=== PATIENT | female | born 1955 | race Caucasian/White ===

== ENCOUNTER → 2016-11-22 | Outpatient (CLI) | payer OTHER ==
[~2016-11-22] MED LIST: ACETAMINOPHEN-H1 TA2 PO; ALBUTEROL0.09 MG/A2 INH; AMOXICILLIN500 M2 PO; ASPIRIN ADULT L81 M1 PO; ATARAX,VISTARIL50 MG PO; BACTRIM DS 8001 TA1 PO; CARBIDOPA/LEVOD1 TA1 PO; CLARITIN10 MG PO; CLINDAMYCIN HC300 MG PO; DAYPRO600 M1 PO; EPI-PEN IM; FLONASE ALLERG9.9 ML NAS; FLONASE0.05 MG/AC NS; GABAPENTIN600 MG PO; KEFLEX500 MG PO; KEPPRA500 MG PO; LISINOPRIL2.5 MG PO; LOVASTATIN40 MG PO; MELOXICAM7.5 MG PO; METOPROLOL SR50 MG PO; METOPROLOL SUCC25 M2 PO; METOPROLOL SUCC50 M1 PO; MEVACOR40 MG PO; MIRALAX POWDER17 G1 PO; MOBIC15 MG PO; NAPROXEN500 M1 PO; NOVAPLUS V0.09 MG/Ac INH; OMEPRAZOLE D/R20 MG PO; OMEPRAZOLE40 MG PO; ONDANSETRON H2 MG/ML IV; PERCOCET 325 MG1 TA7 PO; PHENERGAN25 M1 PO; PRILOSEC40 MG PO; PROZAC10 MG PO; Peridex 473 ML473 ML PO; REQUIP1 MG PO; ROBAXIN750 MG PO; SPIRIVA -- 3018 MCG PO; SPIRIVA18 MCG INH; SYMBICORT1 AE1 INH; TOPAMAX50 MG PO; TOPROL XL50 M1 PO; TOPROL-XL50 MG PO; TORADOL10 MG PO; TRAMADOL50 MG PO; VENTOLIN0.09 MG/AC INH; ZANTAC 150150 MG PO; ZITHROMAX Z PA250 MG PO; ZOFRAN ODT4 MG SL; ZOFRAN4 MG PO
== END | disposition home or self-care (01) ==
LOC: CARD 14:57
DX: I25.10 Atherosclerotic heart disease of native coronary artery without angina pectoris (principal); F14.10 Cocaine abuse, uncomplicated; F11.90 Opioid use, unspecified, uncomplicated; R00.0 Tachycardia, unspecified; Z72.0 Tobacco use

== ENCOUNTER 2017-03-11 18:34 | Emergency (ER) | payer OTHER ==
[~2017-03-11] VITALS: Wt 49.9 kg
[2017-03-11 19:09] LABS: BASO # 0.1 10*3/uL (0.0-0.1); BASO % 0.5 % (0.0-1.0); EOS % 0.1 % (1.0-4.0); HEMATOCRIT 46.8 % (37.0-47.0); HEMOGLOBIN 15.6 g/dl (12.0-16.0); IG # 0.1 10*3/uL (0.0-0.1); LYMPH # 1.8 10*3/uL (1.3-4.4); LYMPH % 16.1 % (27.0-41.0); MEAN CELL VOLUME 86.5 fl (81.0-99.0); MEAN CORPUSCULAR HGB 28.8 pg (27.0-31.0); MEAN CORPUSCULAR HGB CONC 33.3 g/dl (33.0-37.0); MEAN PLATELET VOLUME 8.9 fl (9.6-12.3); MONO % 8.6 % (3.0-9.0); NEUT # 8.4 10*3/uL (2.3-7.9); NEUT % 74.3 % (47.0-73.0); PLATELET COUNT AUTOMATED 262 10*3/uL (130-400); RED BLOOD COUNT 5.41 10*6/uL (4.10-5.10); RED CELL DISTRI WIDTH 13.8 % (0-14.5); WHITE BLOOD COUNT 11.3 10*3/uL (4.8-10.8)
[2017-03-11 19:19] LABS: INTERNATIONAL NORM RATIO 1.1 (2.0-3.5); PROTHROMBIN TIME 11.4 SECONDS (9.0-12.4)
[2017-03-11 19:27] LABS: ALBUMIN 3.7 gm/dl (3.1-4.5); BILIRUBIN, TOTAL 0.7 mg/dl (0.2-1.0); MAGNESIUM 1.6 mg/dL (1.5-2.1); POTASSIUM 3.9 mmol/L (3.5-5.1); TOTAL PROTEIN 7.4 gm/dL (6.4-8.2)
[2017-03-11 19:29] LABS: CKMB 1.1 ng/ml (0.5-3.6)
[2017-03-11 19:30] LABS: TROPONIN I 0.025 ng/ml (<0.045)
[2017-03-11 21:10] VITALS: BP 110/64
== END 2017-03-11 20:44 | disposition short-term general hospital (02) ==
LOC: ED 18:34
PROVIDERS: Registered Nurse
DX: G45.9 Transient cerebral ischemic attack, unspecified (principal); R51 Headache; R11.2 Nausea with vomiting, unspecified; M54.2 Cervicalgia; R42 Dizziness and giddiness; F17.200 Nicotine dependence, unspecified, uncomplicated; Z88.0 Allergy status to penicillin; Z88.6 Allergy status to analgesic agent; Z91.030 Bee allergy status; Z88.8 Allergy status to other drugs, medicaments and biological substances; Z79.82 Long term (current) use of aspirin; Z79.899 Other long term (current) drug therapy

== ENCOUNTER → 2017-04-21 | Outpatient (CLI) | payer OTHER ==
[2017-04-21 14:45] LABS: HEMATOCRIT 39.9 % (37.0-47.0); HEMOGLOBIN 12.6 g/dl (12.0-16.0); MEAN CELL VOLUME 91.1 fl (81.0-99.0); MEAN CORPUSCULAR HGB 28.8 pg (27.0-31.0); MEAN CORPUSCULAR HGB CONC 31.6 g/dl (33.0-37.0); MEAN PLATELET VOLUME 9.1 fl (9.6-12.3); RED BLOOD COUNT 4.38 10*6/uL (4.10-5.10); RED CELL DISTRI WIDTH 13.8 % (0-14.5); WHITE BLOOD COUNT 5.8 10*3/uL (4.8-10.8)
[2017-04-21 15:05] LABS: ALBUMIN 3.7 gm/dl (3.1-4.5); BUN 15 mg/dl (7-24); CARBON DIOXIDE 30 mmol/L (21-32); CHLORIDE 103 mmol/L (98-107); EST GLOM FILT AFRICAN AMERICAN > 60 ml/min; GLUCOSE 91 mg/dL (65-99); SGOT/AST 12 IU/L (3-35); SGPT/ALT 15 U/L (12-78); SODIUM 136 mmol/L (136-145)
[2017-04-21 15:08] LABS: ALKALINE PHOSPHATASE 69 U/L (45-117); BILIRUBIN, TOTAL 0.4 mg/dl (0.2-1.0); CHOLESTEROL 181 mg/dL (<200); TOTAL PROTEIN 7.4 gm/dL (6.4-8.2); TRIGLYCERIDES 64 mg/dl (<150); VLDL CHOLESTEROL 13 mg/dL (6-40)
[2017-04-21 15:16] LABS: HDL CHOLESTEROL 83 mg/dl (40-60); LDL CHOLESTEROL 85 mg/dL (9-159)
[2017-04-21 15:17] LABS: HEMOGLOBIN A1c 5.9 % (4.8-5.6)
[2017-04-22 08:10] LABS: RHEUMATOID ARTHRITIS FACTOR <10.0 IU/mL (0.0-13.9)
[2017-04-22 17:06] LABS: LYME AB/TOTAL IMMUNOGLOBULINS <0.91 ISR (0.00-0.90)
== END | disposition home or self-care (01) ==
LOC: LAB 14:19
PROVIDERS: Family Medicine
DX: J98.11 Atelectasis (principal); J44.9 Chronic obstructive pulmonary disease, unspecified; I10 Essential (primary) hypertension; E78.00 Pure hypercholesterolemia, unspecified; E74.9 Disorder of carbohydrate metabolism, unspecified; K21.9 Gastro-esophageal reflux disease without esophagitis; M79.1 Myalgia; M25.50 Pain in unspecified joint; Z87.891 Personal history of nicotine dependence; Z85.118 Personal history of other malignant neoplasm of bronchus and lung; Z90.2 Acquired absence of lung [part of]

== ENCOUNTER → 2017-08-02 | Outpatient (CLI) | payer OTHER ==
[2017-08-02 16:18] LABS: ALBUMIN 3.5 gm/dl (3.1-4.5); ALKALINE PHOSPHATASE 78 U/L (45-117); BUN 11 mg/dl (7-24); CHLORIDE 110 mmol/L (98-107); CHOLESTEROL 185 mg/dL (<200); CPK 84 U/L (26-192); CREATININE 0.96 mg/dL (0.55-1.02); HDL CHOLESTEROL 68 mg/dl (40-60); LDL CHOLESTEROL 96 mg/dL (9-159); POTASSIUM 4.5 mmol/L (3.5-5.1); SGOT/AST 8 IU/L (3-35); SGPT/ALT 21 U/L (12-78); SODIUM 141 mmol/L (136-145); TOTAL PROTEIN 7.3 gm/dL (6.4-8.2); TRIGLYCERIDES 105 mg/dl (<150); VLDL CHOLESTEROL 21 mg/dL (6-40)
== END | disposition home or self-care (01) ==
LOC: LAB 15:47
PROVIDERS: Family Medicine
DX: E78.00 Pure hypercholesterolemia, unspecified (principal)

== ENCOUNTER 2017-09-21 16:30 | Inpatient (IN) | payer OTHER ==
[~2017-09-21] VITALS: Ht 162.5 cm; Wt 48.2 kg
[2017-09-21 16:40] VITALS: BP 137/79
[2017-09-21 17:06] LABS: BASO # 0.1 10*3/uL (0.0-0.1); EOS % 0.5 % (1.0-4.0); HEMATOCRIT 42.4 % (37.0-47.0); HEMOGLOBIN 13.8 g/dl (12.0-16.0); LYMPH # 1.2 10*3/uL (1.3-4.4); LYMPH % 19.9 % (27.0-41.0); MEAN CORPUSCULAR HGB 28.6 pg (27.0-31.0); MEAN CORPUSCULAR HGB CONC 32.5 g/dl (33.0-37.0); MEAN PLATELET VOLUME 8.9 fl (9.6-12.3); MONO # 0.3 10*3/uL (0.1-1.0); MONO % 5.3 % (3.0-9.0); NEUT # 4.4 10*3/uL (2.3-7.9); NEUT % 73.1 % (47.0-73.0); PLATELET COUNT AUTOMATED 296 10*3/uL (130-400); RED BLOOD COUNT 4.82 10*6/uL (4.10-5.10); RED CELL DISTRI WIDTH 12.9 % (0-14.5)
[2017-09-21 17:27] LABS: ALBUMIN 3.5 gm/dl (3.1-4.5); ALKALINE PHOSPHATASE 64 U/L (45-117); BUN 10 mg/dl (7-24); CHLORIDE 106 mmol/L (98-107); SGOT/AST 17 IU/L (3-35); SGPT/ALT 23 U/L (12-78); SODIUM 138 mmol/L (136-145); TOTAL PROTEIN 7.2 gm/dL (6.4-8.2)
[2017-09-21 17:28] LABS: ACETAMINOPHEN (TYLENOL) < 2.0 ug/ml (10-30); ETHYL ALCOHOL < 3.0 mg/dl (<3)
[2017-09-21 17:56] LABS: BILIRUBIN NEGATIVE (NEGATIVE); BLOOD NEGATIVE (NEGATIVE); CLARITY CLEAR (CLEAR); COLOR YELLOW (YELLOW); GLUCOSE NEGATIVE (NEGATIVE); KETONE NEGATIVE (NEGATIVE); LEUKO ESTERASE NEGATIVE (NEGATIVE); NITRITE NEGATIVE (NEGATIVE); SPECIFIC GRAVITY <= 1.005 (1.005-1.030); UROBILINOGEN 0.2 E.U./dl (0.2-1.0)
[2017-09-21 18:05] LABS: BACTERIA TRACE; EPITHELIAL CELLS 20-25
[2017-09-21 18:06] LABS: URINE AMPHETAMINES < 1000 (1000ng/ml); URINE BARBITURATES < 200 (200ng/ml); URINE BENZODIAZEPINES < 200 (200ng/ml); URINE CANNABINOIDS (THC) < 50 (50ng/ml); URINE COCAINE < 300 (300ng/ml); URINE METHADONE < 300 (300ng/ml); URINE OPIATES > 300 (300ng/ml)
[2017-09-21 18:07] LABS: URINE PHENCYCLIDINE < 25 (25ng/ml)
[2017-09-21 18:09] VITALS: BP 138/80
[2017-09-21 18:15] VITALS: BP 123/76
[2017-09-21] MEDS ORDERED: GABAPENTIN600 MG PO (18:28)
[2017-09-21] MEDS ORDERED: INCRUSE ELLI62.5 MCG INH (18:29)
[2017-09-21 20:00] VITALS: BP 123/76
[2017-09-22] VITALS: BP 101/70
[2017-09-22 08:00] VITALS: BP 90/60
[2017-09-22 12:00] VITALS: BP 92/54
[2017-09-22 16:00] VITALS: BP 104/72
[2017-09-22 20:00] VITALS: BP 90/56
[2017-09-23] VITALS: BP 98/55
[2017-09-23 08:00] VITALS: BP 103/67
[2017-09-23 12:00] VITALS: BP 98/57
[2017-09-23 16:00] VITALS: BP 99/58
[2017-09-23 20:00] VITALS: BP 90/56
[2017-09-24] VITALS: BP 101/63
[2017-09-24 08:00] VITALS: BP 102/65
[2017-09-24] MEDS ORDERED: THERA TABLET400 MCG PO (10:22)
[2017-09-24] MEDS ORDERED: ROPINIROLE HYD0.5 MG PO (10:22)
[2017-09-24 12:00] VITALS: BP 110/71
[2017-09-24] MEDS ORDERED: ATARAX,VISTARIL50 MG PO (13:25)
[2017-09-24] MEDS ORDERED: ZOFRAN 4 MG ED2 TAB PO (13:25)
== END 2017-09-24 14:08 | disposition home or self-care (01) | DRG 897 ==
LOC: ED 16:30 → EDHOLD 17:35 → 5E 17:35 → EDHOLD 17:44 → 5E 17:57
PROVIDERS: Nurse Practitioner Family
DX: F11.23 Opioid dependence with withdrawal (principal); R56.9 Unspecified convulsions; G62.9 Polyneuropathy, unspecified; R73.9 Hyperglycemia, unspecified; F12.10 Cannabis abuse, uncomplicated; F14.10 Cocaine abuse, uncomplicated; J44.9 Chronic obstructive pulmonary disease, unspecified; E78.00 Pure hypercholesterolemia, unspecified; I10 Essential (primary) hypertension; R00.0 Tachycardia, unspecified; G43.909 Migraine, unspecified, not intractable, without status migrainosus; F17.200 Nicotine dependence, unspecified, uncomplicated; K21.9 Gastro-esophageal reflux disease without esophagitis; R73.03 Prediabetes; Z88.0 Allergy status to penicillin; Z88.6 Allergy status to analgesic agent; Z88.8 Allergy status to other drugs, medicaments and biological substances; Z71.6 Tobacco abuse counseling; Z91.030 Bee allergy status; Z85.118 Personal history of other malignant neoplasm of bronchus and lung; Z86.73 Personal history of transient ischemic attack (TIA), and cerebral infarction without residual deficits; Z90.710 Acquired absence of both cervix and uterus; Z80.42 Family history of malignant neoplasm of prostate; Z82.49 Family history of ischemic heart disease and other diseases of the circulatory system; Z79.51 Long term (current) use of inhaled steroids; Z79.82 Long term (current) use of aspirin; Z79.899 Other long term (current) drug therapy

== ENCOUNTER → 2018-03-26 | Outpatient (CLI) | payer OTHER ==
[~2018-03-26] MED LIST changes: +BREO ELLIPTA 11 EACH INH; +DICYCLOMINE HCL20 MG PO; +EPIPEN 2-P0.3 MG/0.3 IJ; +INCRUSE ELLI62.5 MCG INH; +MOBIC7.5 MG PO; +Metformin Hydr500 MG PO; +NEURONTIN800 MG PO; +ROPINIROLE HYD0.5 MG PO; +THERA TABLET400 MCG PO; +ZOFRAN 4 MG ED2 TAB PO
[2018-03-26 12:48] LABS: HEMATOCRIT 44.2 % (37.0-47.0); HEMOGLOBIN 13.6 g/dl (12.0-16.0); MEAN CELL VOLUME 92.3 fl (81.0-99.0); MEAN CORPUSCULAR HGB 28.4 pg (27.0-31.0); MEAN CORPUSCULAR HGB CONC 30.8 g/dl (33.0-37.0); MEAN PLATELET VOLUME 9.2 fl (9.6-12.3); RED BLOOD COUNT 4.79 10*6/uL (4.10-5.10); RED CELL DISTRI WIDTH 13.6 % (0-14.5); WHITE BLOOD COUNT 6.2 10*3/uL (4.8-10.8)
[2018-03-26 13:18] LABS: ALBUMIN 3.5 gm/dl (3.1-4.5); ALKALINE PHOSPHATASE 68 U/L (45-117); BUN 15 mg/dl (7-24); CHLORIDE 107 mmol/L (98-107); CHOLESTEROL 165 mg/dL (<200); CPK 41 U/L (26-192); CREATININE 1.04 mg/dL (0.55-1.02); HDL CHOLESTEROL 62 mg/dl (40-60); LDL CHOLESTEROL 84 mg/dL (9-159); POTASSIUM 4.3 mmol/L (3.5-5.1); SGOT/AST 8 IU/L (3-35); SGPT/ALT 12 U/L (12-78); SODIUM 139 mmol/L (136-145); TOTAL PROTEIN 7.2 gm/dL (6.4-8.2); TRIGLYCERIDES 96 mg/dl (<150); VLDL CHOLESTEROL 19 mg/dL (6-40)
== END | disposition home or self-care (01) ==
LOC: LAB 11:36
PROVIDERS: Family Medicine
DX: J44.9 Chronic obstructive pulmonary disease, unspecified (principal); E74.9 Disorder of carbohydrate metabolism, unspecified; E78.00 Pure hypercholesterolemia, unspecified; I10 Essential (primary) hypertension; M19.90 Unspecified osteoarthritis, unspecified site; C34.90 Malignant neoplasm of unspecified part of unspecified bronchus or lung; K21.9 Gastro-esophageal reflux disease without esophagitis; I25.10 Atherosclerotic heart disease of native coronary artery without angina pectoris

== ENCOUNTER → 2018-04-04 | Outpatient (CLI) | payer OTHER ==
[2018-04-04 12:34] LABS: HEMATOCRIT 39.6 % (37.0-47.0); HEMOGLOBIN 12.5 g/dl (12.0-16.0); MEAN CORPUSCULAR HGB 28.4 pg (27.0-31.0); MEAN CORPUSCULAR HGB CONC 31.6 g/dl (33.0-37.0); MEAN PLATELET VOLUME 9.2 fl (9.6-12.3); RED BLOOD COUNT 4.4 10*6/uL (4.10-5.10); RED CELL DISTRI WIDTH 13.7 % (0-14.5); WHITE BLOOD COUNT 5.2 10*3/uL (4.8-10.8)
[2018-04-04 12:47] LABS: ALBUMIN 3.7 gm/dl (3.1-4.5); ALKALINE PHOSPHATASE 64 U/L (45-117); BUN 20 mg/dl (7-24); CHLORIDE 107 mmol/L (98-107); CREATININE 0.92 mg/dL (0.55-1.02); POTASSIUM 4.6 mmol/L (3.5-5.1); SGOT/AST 8 IU/L (3-35); SGPT/ALT 14 U/L (12-78); SODIUM 141 mmol/L (136-145); TOTAL PROTEIN 7.3 gm/dL (6.4-8.2)
== END | disposition home or self-care (01) ==
LOC: LAB 11:46
PROVIDERS: Family Medicine
DX: D45 Polycythemia vera (principal); R73.9 Hyperglycemia, unspecified; E87.1 Hypo-osmolality and hyponatremia; T40.1X1A Poisoning by heroin, accidental (unintentional), initial encounter

== ENCOUNTER 2019-01-10 02:31 | Inpatient (IN) | payer OTHER ==
[~2019-01-10] VITALS: Ht 157.4 cm; Wt 48.8 kg
[2019-01-10] VITALS (9 sets, daily range): BP systolic 120–182; BP diastolic 74–104
--- NOTE | ~2019-01-10 | CON ---
[place], [place] REPORT OF CONSULTATION NAME: GARFIELD YUNG [facility] #: [id number] UNIT #: [id number] ROOM: 506 DOCTOR: DANIEL SANDHU MDMIMI BIRTHDATE: [birth year] DOS: 01/11/2019 PULMONARY CONSULTATION EVALUATION AND MANAGEMENT CONSULTATION REQUESTED BY: Marcelo Hagen MD REASON FOR CONSULTATION: Acute exacerbation of COPD. HISTORY OF PRESENT ILLNESS: This is a 63-year-old white female patient known to me with past history of COPD as well as small cell lung cancer. The patient was noted in remission since 2002. She presented to the hospital for assessment of having increased symptoms of shortness of breath, which was gradually occurring and progressively worsening. The symptom has been noted markedly worsened. The patient does have symptoms of wheezing associated with coughing, chest congestion and a small amount of sputum expectoration at time, but most time was noted nonproductive. The patient has been in the hospital for medical management of ongoing acute exacerbation of chronic obstructive pulmonary disease. REVIEW OF SYSTEMS: CONSTITUTIONAL SYMPTOMS: Fatigue and tiredness noted. Denies symptoms of fever or chills. EYES: Denies burning, redness, or tenderness. EAR, NOSE, THROAT SYMPTOMS: Denies sore throat, hoarseness, otalgia, postnasal drainage or epistaxis. CARDIOVASCULAR: Denies any symptoms of palpitations, edema of the lower extremities or angina pain. GENITOURINARY SYMPTOMS: Denies dysuria, suprapubic pain, or hematuria. GASTROINTESTINAL: The patient was noted with weight loss previously. There was no history of nausea, vomiting, diarrhea, abdominal pain, hematemesis, melena, or hematochezia. SKIN: Denies any abnormal lesions or rashes. CENTRAL NERVOUS SYSTEM: No dizziness, headache, diplopia, syncopal episode Remaining systems were reviewed, they were noted all negative. PAST MEDICAL HISTORY: 1. Chronic obstructive pulmonary disease. 2. Nicotine dependence. 3. Illicit drug use in the form of heroin. 4. Restless legs syndrome. 5. Uncomplicated moderate persistent bronchial asthma. 6. Small cell cancer, status post chemotherapy, radiation and mediastinoscopy in 2002, known in remission. 7. Essential hypertension. 8. Allergic rhinitis. 9. Hypercholesterolemia. 10. Gastroesophageal reflux. PAST SURGICAL HISTORY: [place], [place] REPORT OF CONSULTATION NAME: GARFIELD YUNG UNIT #: [id number] ROOM: 506 DOCTOR: DANIEL SANDHU MD,MIMI BIRTHDATE: [birth year] 1. Mediastinoscopy. 2. Right upper lobectomy in 2012 without any evidence of malignancy. The nodule was noted as benign. SOCIAL HISTORY: The patient is . She has 4 children. Denies any history of alcohol use. The patient does have a history of heroin use. Tobacco use noted since teenager 14 years old, half to a pack of cigarettes per day. FAMILY HISTORY: Father with complication of lung cancer. History about mom was unknown. CURRENT MEDICATIONS: Administered on this hospitalization as loratadine, aspirin, metformin, omeprazole, olanzapine, Remeron, Topamax, metoprolol succinate, Meloxicam Levaquin, DuoNeb, lorazepam, some other p.r.n. medication. DRUG ALLERGY HISTORY: 1. PENICILLIN. 2. MORPHINE. 3. PREDNISONE. PHYSICAL EXAMINATION: GENERAL: This is a 63-year-old female patient who has been currently noted awake and alert without any acute distress. Height of 5 feet 2 inches, weight of 107 pounds, BMI 19.7. VITAL SIGNS: For the patient which were recorded this morning as a normal temperature, respiratory rate 20, heart rate of 120, was noted up to 134 beats per minute with sinus tachycardia, blood pressure at midnight was noted as 174/98 and this morning blood pressure was not available. Pulse oxygen saturation recorded on 2 liters nasal cannula as 97% saturation. HEENT: Examination shows head was atraumatic. Eyes nonicterus. NECK: Supple. CARDIOVASCULAR: S1, S2 is audible. LUNGS: The patient was noted with decreased breath sounds in the lungs bilaterally. There was no wheezing. There were no rales or crackles. Expiratory wheezing present in the lungs bilaterally. ABDOMEN: Soft and nontender. Bowel sounds present. EXTREMITIES: The patient without any acute edema. MUSCULOSKELETAL: Without acute deformities. CENTRAL NERVOUS SYSTEM: Cranial nerves 2-12 intact. LABORATORY DATA: The PT, PTT on 01/10/2019 was noted as normal. CBC of 01/10/2019 WBC count 12.5, remaining CBC was normal. The CMP that was done yesterday. The patient has a normal BUN and creatinine. Potassium 2.9. Other electrolytes are normal. Influenza A and B, nasal washing antigens were negative. Urine drug screen that was done yesterday was noted positive for opiates. CBC that was done on 01/11/2019, WBC count 12.1, hemoglobin and hematocrit normal, platelet count of 469,000. IMPRESSION: 1. The patient who has been currently admitted to the hospital, was noted with [place], [place] REPORT OF CONSULTATION NAME: GARFIELD YUNG UNIT #: [id number] ROOM: [facility] DOCTOR: DANIEL SANDHU MD,MIMI BIRTHDATE: [birth year] acute exacerbation of chronic obstructive pulmonary disease with acute bronchitis. 2. History of illicit drug use in the form of heroin and continuing nicotine dependence. 3. Past history of small cell lung cancer as well with chemotherapy treatment radiation, was not noted any recurrent cancer since then, but the patient continued to have tobacco dependence. 4. Acute exacerbation of bronchial asthma as well. PLAN OF TREATMENT: The patient is receiving bronchodilator, which will be continued. Start the patient on oral antibiotics with acute bronchitis and IV Solu-Medrol. Other therapy, plan of management. Additional treatment changes will be made progression of the illness. Supportive care, other therapies and plan of care. Thank you for allowing me to participate in the care of this patient. MIMI SANCHEZ MD CM:CONSTR:REPORT OF CONSULTATION 1143 01/12/19 0551 interface
--- NOTE | ~2019-01-10 | DS ---
[place], [place] DISCHARGE SUMMARY [id number] UNIT #: [id number] ROOM: 506 DOCTOR: FERNANDA RICHARDSON MD BIRTHDATE: [birth year] DOS: 01/13/2019 DISCHARGE DIAGNOSES: 1. Acute exacerbation of severe underlying chronic obstructive pulmonary disease. 2. Benign essential hypertension. 3. Gastroesophageal reflux disease and esophagitis. 4. Type 2 diabetes mellitus. 5. Generalized seizure disorder. The patient is on Keppra. 6. Type 2 diabetes mellitus. 7. Mixed hyperlipidemia. 8. History of cocaine and heroin abuse. 9. History of lobectomy of the lung. 10. Gastroesophageal reflux disease and esophagitis. 11. POLLEN allergies. 12. Benign essential hypertension. 13. Nicotine smoke dependence. The patient was admitted when she presented to the Emergency Department with increased complaints of shortness of breath, cough, wheezing and chest congestion. She was admitted for acute exacerbation of COPD, treated with corticosteroids, antibiotic, oxygen and her breathing has improved. She still has slight chronic expiratory wheezing and she takes bronchodilators at home. The patient appears to have achieved maximal benefit from this admission. The patient has history of heroin abuse and started undergoing withdrawal symptoms as the patient claimed and was started on Suboxone during her stay at the hospital and she was kept on the lpn. Benign essential hypertension. Blood pressures stayed normal during her stay at the hospital and some tachycardia related to COPD, which has improved. Generalized seizure disorder, treated and asymptomatic with Keppra, which was continued. GERD and esophagitis, treated with omeprazole. Generalized anxiety disorder. The patient is being sent home on a p.r.n. dose of Ativan and she is requesting Zofran for nausea and vomiting. [place], [place] DISCHARGE SUMMARY NAME: GARFIELD YUNG UNIT #: [id number] ROOM: 506 DOCTOR: FERNANDA RICHARDSON MD BIRTHDATE: [birth year] FERNANDA RICHARDSON MD CM:DISCHARG 51 FERNANDA RICHARDSON MD 01/14/19 0019 interface
--- NOTE | ~2019-01-10 | EKG ---
[place], [place] ELECTROCARDIOGRAM REPORT NAME: GARFIELD YUNG UNIT #: [id number] ROOM: 506 DOCTOR: EPIPHANY DRAFT REPORT BIRTHDATE: [birth year] [facility] Test Date: 2019-01-10 Test Time: 08:58:30 Pat Name: GARFIELD YUNG Department: Room: 506 Gender: F Comb Setter: Don Gómez : 1955 Requested By: SAVANA QUESADA Order Number: [id number] Reading MD: Eben Palma MD Measurements Intervals [place] Rate: 128 P: 81 IN: 129 QRS: 61 QRSD: 89 T: 18 QT: 329 QTc: 480 Interpretive Statements Sinus tachycardia Borderline low voltage, extremity leads Nonspecific repol abnormality, diffuse leads Compared to ECG 01/10/2019 05:08:25 Prolonged QT interval no longer present Electronically Signed On 01-14-2019 14:12:14 PDT by Eben Palma MD CM:EKGRPT:ELECTROCARDIOGRAM REPORT [id number] SAVANA QUESADA MD EPIPHANY DRAFT REPORT SAVANA QUESADA MD
--- NOTE | ~2019-01-10 | EKG ---
[place], [place] ELECTROCARDIOGRAM REPORT NAME: GARFIELD YUNG UNIT #: [id number] ROOM: 506 DOCTOR: EPIPHANY DRAFT REPORT BIRTHDATE: [birth year] [facility] Test Date: 2019-01-10 Test Time: 05:08:25 Pat Name: GARFIELD YUNG Department: Room: 506 Gender: F Interactive Project Manager: Ariadne Hernandez : 1955 Requested By: SAVANA QUESADA Order Number: [id number] Reading MD: Umair Kingsley Measurements Intervals [place] Rate: 132 P: 71 [place]: 102 QRS: 60 QRSD: 97 T: -74 QT: 358 QTc: 531 Interpretive Statements Sinus tachycardia Borderline low voltage, extremity leads Nonspecific repol abnormality, diffuse leads Prolonged QT interval Compared to ECG 03/29/2018 10:13:29 Early repolarization now present Prolonged QT interval now present Atrial abnormality no longer present ST (T wave) deviation no longer present Myocardial infarct finding no longer present Electronically Signed On 01-10-2019 5:58:47 PDT by Umair Kingsley CM:EKGRPT:ELECTROCARDIOGRAM REPORT [id number] SAVANA QUESADA MD EPIPHANY DRAFT REPORT SAVANA QUESADA MD
--- NOTE | ~2019-01-10 | PR ---
[place], [place] PROGRESS NOTE NAME: GARFIELD YUNG [facility] #: [id number] UNIT #: [id number] ROOM: 506 DOCTOR: DANIEL SANDHU MD,MIMI BIRTHDATE: [birth year] DOS: 01/12/2019 SUBJECTIVE: The patient was noted comfortable at this time, resting on the bed. She is still complaining of chest congestion and coughing. Denies symptoms of fever or chills. Denies symptoms of hemoptysis. Denies symptoms of nausea, vomiting, diarrhea or any abdominal pain. OBJECTIVE: VITAL SIGNS: For the patient which were recorded showed the temperature noted as normal. Respiratory rate 18, heart rate 103, blood pressure 154/80. Pulse oxygen saturation on 2 liters is 95% saturation. HEENT: Head was atraumatic. Eyes nonicterus. NECK: Supple. CARDIOVASCULAR: S1, S2 audible. LUNGS: Noted expiratory wheezing. There were no crackles. ABDOMEN: Soft, nontender. EXTREMITIES: No acute change. IMPRESSION: 1. The patient with respiratory status, which has been still noted ongoing wheezing with acute exacerbation of chronic obstructive pulmonary disease with acute bronchitis. 3. History of nicotine dependence. PLAN OF TREATMENT: Continue steroids, bronchodilators, oxygen and mucolytics. No change in treatment immediately will be necessary. MIMI SANCHEZ MD CM:PNTRANS [id number] MIMI SANDHU MD 01/13/19 0320 interface
--- NOTE | ~2019-01-10 | CON ---
[place], [place] REPORT OF CONSULTATION NAME: GARFIELD YUNG [facility] #: [id number] UNIT #: [id number] ROOM: 506 DOCTOR: PHD JORDANA JUNEHERINE BIRTHDATE: [birth year] DOS: 01/10/2019 HISTORY OF PRESENT ILLNESS: The patient is a 63-year-old female referred by Dr. Hagen due to heroin withdrawal. At the present time, the patient is on the 5th floor, [facility]. She lives with her boyfriend and daughter. She has 4 children and her oldest son was killed. She denied alcohol use. She smokes a pack of cigarettes per week and uses half to a gram of heroin daily. Her last use was yesterday. She could not state how much she used. She has been using heroin she states for a few years. Her mother and her brother was sick, which triggered her to start using drugs. She is receiving SSI. PAST MEDICAL HISTORY: Heroin abuse, nicotine dependence, type 2 diabetes, COPD, mixed hyperlipidemia, cocaine abuse, history of lobectomy of the lung, gastroesophageal reflux disease and esophagitis, POLLEN allergies, benign essential hypertension. MEDICATIONS: Claritin, aspirin, Glucophage, Prilosec, Topamax, Zofran, Toprol-XL, Mobic, Keppra, Requip, DuoNeb, Subutex, Ativan. PHYSICAL EXAMINATION: The patient was lying in bed and in mild distress due to nausea and withdrawal. She had taken Subutex and Zofran had been requested for the patient. She was awake, alert and oriented to person, place and time. Mood was depressed and anxious and affect was restricted in range. She denied suicidal and homicidal ideation, plan and intent. She followed up with the counseling center in the past as well as various outpatient drug treatment facilities. She is hoping to follow up with drug and individual counseling upon discharge. She is also open to medication management. She endorsed symptoms of hopelessness, helplessness, difficulty sleeping, trouble concentrating. Her appetite has been worse due to withdrawal. Speech and language are within normal limits conversationally. Thought process was goal directed. Thought content was negative for hallucinations or delusions. Insight and judgment appeared fair. DIAGNOSES: Opiate abuse, major depressive disorder, recurrent, moderate. PLAN: I talked with Dr. Timmons about medications to assist with the patient's withdrawal. He suggested Remeron 15 mg at bedtime and Zyprexa 2.5 mg in the morning and 2.5 mg at night. The patient also is open to following up with the counseling center upon discharge and the [facility] program as she has utilized them in the past. [place], [place] REPORT OF CONSULTATION NAME: GARFIELD YUNG UNIT #: [id number] ROOM: 506 DOCTOR: MELONIE, PHD MATTHEW BIRTHDATE: [birth year] Radha June, PhD CM:CONSTR:REPORT OF CONSULTATION 1607 01/10/19 2225 interface
--- NOTE | ~2019-01-10 | PR ---
[place], [place] PROGRESS NOTE [id number] UNIT #: [id number] ROOM: 506 DOCTOR: DANIEL SANDHU MD,MIMI BIRTHDATE: [birth year] DOS: 01/13/2019 PULMONARY PROGRESS NOTE SUBJECTIVE: The patient noted comfortable at this time, resting comfortably in the bed without any distress. She has not been reporting any symptoms of chest pain, fever or chills or hemoptysis. The symptoms of cough and shortness of breath has been decreased in the last 24 hours, but the resolution noted incomplete. OBJECTIVE: VITAL SIGNS: This morning, normal temperature, respiratory rate 20, heart rate 102, blood pressure 122/60. HEENT: Examination shows head was atraumatic. Eyes nonicterus. NECK: Supple. CARDIOVASCULAR: S1, S2 audible. LUNGS: The patient was noted without any crackle, rhonchi, or wheezing. Decreased breath sounds with expiratory wheezing, which was improving. ABDOMEN: Soft, nontender, bowel sounds present. EXTREMITIES: No acute change. IMPRESSION: Resolving acute exacerbation of chronic obstructive pulmonary disease, acute tracheobronchitis, history of chronic nicotine dependence as well as chronic dependence on narcotic medication, and use of the heroine, history of nonsmall cell lung cancer, remained in remission. PLAN OF MANAGEMENT: Ambulation to be continued, encourage as tolerated. Continue bronchodilators and oxygen supplementation. Solu-Medrol at current dose. Possible discharge home in the morning. The patient continue to do well on current medical management with current regimen of prednisone and oral antibiotics. MIMI SANCHEZ MD CM:PNTRANS [id number] MIMI SANDHU MD 01/23/19 0838 interface
--- NOTE | ~2019-01-10 | PR ---
[place], [place] PROGRESS NOTE NAME: GARFIELD YUNG [facility] #: [id number] UNIT #: [id number] ROOM: 506 DOCTOR: FERNANDA RICHARDSON MD BIRTHDATE: [birth year] DOS: 01/10/2019 SUBJECTIVE: The patient is feeling somewhat better today. No complaints of withdrawal after she was started on Suboxone and patient is being seen by Dr. Timmons. OBJECTIVE: GENERAL APPEARANCE: The patient is alert and oriented x 3, in no visible distress. VITAL SIGNS: Blood pressure 137/76, heart rate of 118 beats per minute, breathing 16 times per minute and temperature of 98.4 degrees Fahrenheit. HEENT AND NECK: Exam within normal limits. CARDIOVASCULAR SYSTEM: Heart rate is regular in rate and rhythm. S1 and S2 normally audible. LUNGS: Clear to auscultation. ABDOMEN: Soft, nontender. No obvious organomegaly. Bowel sounds are present. EXTREMITIES: Without significant cyanosis or edema. IMPRESSION: 1. The patient with opioid dependence with opioid-positive drug test, feeling better with Suboxone. 2. The patient is being seen by Psychiatry and started on Zyprexa and mirtazapine. Dr. Timmons to follow. 3. Type 2 diabetes mellitus. The patient is on metformin. Blood sugars have been reasonably controlled. 4. Acute exacerbation of chronic obstructive pulmonary disease, being treated with bronchodilators. Dr. Blevins is following. 5. Gastroesophageal reflux disease and esophagitis, asymptomatic with omeprazole. 6. POLLEN allergies, treated and controlled with loratadine. 7. The patient remains on Keppra, which she has been started in the past for suspicion of generalized seizures. FERNANDA RICHARDSON MD CM:PNTRANS [id number] FERNANDA RICHARDSON MD 01/11/19 1725 interface
--- NOTE | ~2019-01-10 | EKG ---
[place], [place] ELECTROCARDIOGRAM REPORT NAME: GARFIELD YUNG UNIT #: [id number] ROOM: 506 DOCTOR: MADDIE DRAFT REPORT BIRTHDATE: [birth year] [facility] Test Date: 2019-01-10 Test Time: 02:37:50 Pat Name: GARFIELD YUNG Department: Room: 506 Gender: F Security Patrol Officer: : 1955 Requested By: SAVANA QUESADA Order Number: [id number] Reading MD: Umair Kingsley Measurements Intervals [place] Rate: 131 P: 78 DC: 108 QRS: 64 QRSD: 97 T: -89 QT: 345 QTc: 510 Interpretive Statements Sinus tachycardia Atrial premature complexes Anteroseptal infarct, age indeterminate Prolonged QT interval Baseline wander in lead(s) V2 Compared to ECG 03/29/2018 10:13:29 Atrial premature complex(es) now present Prolonged QT interval now present Atrial abnormality no longer present ST (T wave) deviation no longer present Myocardial infarct finding still present Electronically Signed On 01-10-2019 5:58:03 PDT by Umair Kingsley CM:EKGRPT:ELECTROCARDIOGRAM REPORT [id number] SAVANA QUESADA MD EPIPHANY DRAFT REPORT SAVANA QUESADA MD
--- NOTE | ~2019-01-10 | WRIGHTHP ---
[place], [place] PATIENT HISTORY AND PHYSICAL EXAM NAME: GARFIELD YUNG [facility] #: [id number] UNIT #: [id number] ROOM: 506 DOCTOR: FERNANDA RICHARDSON MD BIRTHDATE: [birth year] DOS: 01/10/2019 HISTORY OF PRESENT ILLNESS: The patient is a 63-year-old female with a past medical history of; 1. Substance abuse with heroin. 2. Nicotine smoke dependence. 3. Type 2 diabetes mellitus. 4. Chronic obstructive pulmonary disease. 5. Mixed hyperlipidemia. 6. Cocaine abuse. 7. History of lobectomy of the lung. 8. Gastroesophageal reflux disease and esophagitis. 9. POLLEN allergies. 10. Benign essential hypertension. The patient presented to the Emergency Department with several days' complaint of increasing shortness of breath and wheezing, cough, chest congestion. The patient was diagnosed as having acute exacerbation of COPD and recommended for admission and further management. No complaints of any chest pain. The patient had some episodes of dizziness, but no fainting episode. No other GI or urinary symptoms. REVIEW OF SYSTEMS: RESPIRATORY: Increasing shortness of breath and wheezing. GASTROINTESTINAL: No nausea, vomiting, diarrhea, constipation. CARDIOVASCULAR: No chest pains or palpitations. FAMILY HISTORY: Noncontributory. ALLERGIES: Known allergies to PENICILLIN, BEE STINGS, MORPHINE, and PREDNISONE. PHYSICAL EXAMINATION: GENERAL: Alert, oriented x 3, in no visible distress. VITAL SIGNS: Blood pressure 137/76, heart rate of 128 beats per minute, breathing 32 times per minute, temperature of 98 degrees Fahrenheit. HEENT AND NECK: Extraocular movements are intact. Sclerae are anicteric. Oral mucosa is moist and clean. No obvious facial weakness. Neck is supple without any lymphadenopathy. No thyromegaly. No JVD. No carotid arterial bruits. LUNGS: Decreased breath sounds and expiratory wheezing all over. CARDIOVASCULAR SYSTEM: Heart rate is regular in rate and rhythm. S1 and S2 normally audible. No significant murmur or any other abnormal cardiac sounds. ABDOMEN: Soft, nontender. No obvious organomegaly. Bowel sounds are present. No obvious herniation. EXTREMITIES: Without significant cyanosis or edema. Warm to touch. CENTRAL NERVOUS SYSTEM: Alert and oriented x 3. Cranial nerves II-XII are intact. Speech is normal. The patient is able to move all extremities. Normal muscle strength. Deep tendon reflexes are equal on both sides. Plantars were downgoing. IMPRESSION: [place], [place] PATIENT HISTORY AND PHYSICAL EXAM NAME: GARFIELD YUNG [facility] #: [id number] UNIT #: [id number] ROOM: 506 DOCTOR: FERNANDA RICHARDSON MD BIRTHDATE: [birth year] 1. The patient with acute exacerbation of severe underlying chronic obstructive pulmonary disease, being treated with bronchodilators, oxygen and Dr. Blevins, the dental hygiene professor consulted for help with management. 2. Tachycardia, probably from opiate withdrawal. No drug screen was performed at admission. The patient is being treated with Ativan and will also get a Psychiatry consult for help with management with withdrawals and the patient started on a community midwife. For tachycardia, the patient is being put back on her Toprol and to be monitored closely. 3. Benign essential hypertension to be treated and controlled. 4. Gastroesophageal reflux disease and esophagitis. The patient continued on omeprazole. 5. POLLEN allergies, treated with loratadine, which has been continued. 6. Type 2 diabetes mellitus. The patient continued on metformin and kept on no concentrated sweet diet. 7. The patient was kept on Keppra on suspicion of possible seizures, for which Keppra is being continued. FERNANDA RICHARDSON MD CM:HISPHYS:PATIENT HISTORY AND PHYSICAL EXAMINATION [id number] FERNANDA RICHARDSON MD 01/10/19 1125 interface
--- NOTE | ~2019-01-10 | PR ---
[place], [place] PROGRESS NOTE NAME: GARFIELD YUNG [facility] #: [id number] UNIT #: [id number] ROOM: 506 DOCTOR: FERNANDA RICHARDSON MD BIRTHDATE: [birth year] DOS: SUBJECTIVE: The patient continues to feel better and she is requesting a regular diet noted, not a sugar-free diet. OBJECTIVE: VITAL SIGNS: Blood pressure 154/80, heart rate of 103 beats per minute, breathing 18 times per minute, and temperature 98.2 degrees Fahrenheit. GENERAL APPEARANCE: The patient is alert and oriented x 3, in no visible distress. HEENT AND NECK: Exam within normal limits. CARDIOVASCULAR SYSTEM: Heart rate is regular in rate and rhythm. S1 and S2 normally audible. LUNGS: Clear to auscultation. ABDOMEN: Soft, nontender. No obvious organomegaly. Bowel sounds are present. EXTREMITIES: Without significant cyanosis or edema. IMPRESSION: 1. The patient's heroin abuse and withdrawal symptoms controlled with Suboxone, tachycardia has also improved. 2. Acute exacerbation of severe underlying chronic obstructive pulmonary disease with oxygen dependence, also being followed by Dr. Blevins, continues to improve. The patient on bronchodilators and antibiotics. 3. Benign essential hypertension, treated, and blood pressure being monitored and controlled. 4. Gastroesophageal reflux disease and esophagitis, treated with omeprazole. 5. Type 2 diabetes mellitus. The patient remains on metformin, but requesting a regular diet. 6. The patient without seizures, on Keppra; generalized seizure disorder. FERNANDA RICHARDSON MD CM:PNTRANS [id number] FERNANDA RICHARDSON MD 01/13/19 1303 interface
--- NOTE | ~2019-01-10 | PR ---
[place], [place] PROGRESS NOTE NAME: GARFIELD UYNG [facility] #: [id number] UNIT #: [id number] ROOM: 506 DOCTOR: FERNANDA RICHARDSON MD BIRTHDATE: [birth year] DOS: 01/11/2019 SUBJECTIVE: The patient continues to feel much better after being started on Suboxone. OBJECTIVE: VITAL SIGNS: Blood pressure 110/78, heart rate ranging between 86-120 beats per minute, breathing 20 times per minute, temperature of 98 degrees Fahrenheit. IMPRESSION: 1. The patient with heroin abuse and withdrawal symptoms, now controlled with Suboxone. Tachycardia has resolved. She is feeling much better. 2. Acute exacerbation of severe underlying chronic obstructive pulmonary disease, being followed by Dr. Blevins. The patient treated with bronchodilators, antibiotic. 3. Benign essential hypertension, treated and controlled. Blood pressures have improved. 4. Gastroesophageal reflux disease and esophagitis, asymptomatic with omeprazole. 5. POLLEN allergies, treated with loratadine. 6. Type 2 diabetes mellitus. The patient is on metformin. Blood sugars were reasonable at admission. 7. History of brain lesion and seizures treated with Keppra, asymptomatic. FERNANDA RICHARDSON MD CM:PNTRANS [phone] FERNANDA RICHARDSON MD 01/11/191801 interface
[2019-01-10 02:55] LABS: BASO % 0.3 % (0.0-1.0); EOS % 0.2 % (1.0-4.0); HEMATOCRIT 40.5 % (37.0-47.0); HEMOGLOBIN 13.3 g/dl (12.0-16.0); LYMPH # 0.9 10*3/uL (1.3-4.4); LYMPH % 7.1 % (27.0-41.0); MEAN CELL VOLUME 84.4 fl (81.0-99.0); MEAN CORPUSCULAR HGB 27.7 pg (27.0-31.0); MEAN CORPUSCULAR HGB CONC 32.8 g/dl (33.0-37.0); MEAN PLATELET VOLUME 8.9 fl (9.6-12.3); MONO # 0.8 10*3/uL (0.1-1.0); MONO % 6.2 % (3.0-9.0); NEUT # 10.7 10*3/uL (2.3-7.9); NEUT % 85.7 % (47.0-73.0); PLATELET COUNT AUTOMATED 389 10*3/uL (130-400); RED CELL DISTRI WIDTH 13.7 % (0-14.5); WHITE BLOOD COUNT 12.5 10*3/uL (4.8-10.8)
[2019-01-10 03:05] LABS: ACT PARTIAL THROMBO TIME 29.4 SECONDS (20.0-32.1); INTERNATIONAL NORM RATIO 1.2 (2.0-3.5)
[2019-01-10 03:11] LABS: ALBUMIN 2.6 gm/dl (3.1-4.5); ALKALINE PHOSPHATASE 102 U/L (45-117); BUN 10 mg/dl (7-24); CHLORIDE 99 mmol/L (98-107); CREATININE 0.63 mg/dL (0.55-1.02); POTASSIUM 2.9 mmol/L (3.5-5.1); SGOT/AST 5 IU/L (3-35); SGPT/ALT 9 U/L (12-78); SODIUM 136 mmol/L (136-145); TOTAL PROTEIN 7.5 gm/dL (6.4-8.2)
[2019-01-10 03:13] LABS: TROPONIN I < 0.015 ng/ml (<0.045)
[2019-01-10] MEDS ORDERED: GOOD NEIGHBOR150 MG PO (05:34)
[2019-01-10] MEDS ORDERED: METFORMIN HYDR500 MG PO (05:35)
[2019-01-10] MEDS ORDERED: METOPROLOL SUCC50 M1 PO (05:35)
[2019-01-10] MEDS ORDERED: TOPIRAMATE50 M2 PO (05:36)
[2019-01-10] MEDS ORDERED: GOOD NEIGHBOR L10 MG PO (05:36)
[2019-01-10] MEDS ORDERED: FLUTICASONE PROPIONA (05:36)
[2019-01-10] MEDS ORDERED: MELOXICAM7.5 MG PO (05:37)
--- NOTE | 2019-01-10 07:30 | NUR ---
PT RESTING IN BED WITH EYES CLOSED, AWAKENS EASILY. DROWSY. OXYGEN IN USE. MOIST NONPROD COUGH NOTED. CALL LIGHT IN REACH. SEE SHIFT ASSESSMENT.
--- NOTE | 2019-01-10 09:00 | NUR ---
RESTING IN BED WITH EYES CLOSED. RESP-EASY AND REGULAR AT THIS TIME. OXYGEN IN USE. CALL LIGHT IN REACH.
--- NOTE | 2019-01-10 10:24 | NUR ---
CALLED DR. RICHARDSON REGARDING PT HEARTRATE 120'S-130'S. PT GETS SOB WITH MINIMAL EXERTION. ALSO NOTIFIED PT TRIED TO EAT AND DRINK THIS AM, SHE STARTED COUGHING AND CHOKING. HE WAS MADE AWARE PT NEEDS HOME MEDICATIONS ORDERED. DR. RICHARDSON CAME TO FLOOR TO SEE PT.
--- NOTE | 2019-01-10 11:15 | NUR ---
SPOKE WITH DR. SANCHEZ AWARE OF CONSULT.
--- NOTE | 2019-01-10 11:16 | NUR ---
CALLED DR. VAZQUEZ OFFICE [facility], THEY WILL NOTIFY HIM OF CONSULT.
--- NOTE | 2019-01-10 11:51 | NUR ---
PT MEDICATED WITH ATIVAN PER ORDER, SEE EMAR FOR ANXIETY. ALSO MEDICATED WITH REQUIP FOR RESTLESS LEGS. VISITOR AT HER SIDE. CALL LIGHT IN REACH.
--- NOTE | 2019-01-10 12:00 | NUR ---
BSG-163. CALLED DR. RICHARDSON REGARDING PT WISHING TO GET [facility] INVOLVED AND SHE WANTS SUBUTEX. HE ORDERED SUBUTEX, SEE EMAR.
[2019-01-10 12:06] LABS: URINE AMPHETAMINES < 1000 (1000ng/ml); URINE BARBITURATES < 200 (200ng/ml); URINE BENZODIAZEPINES < 200 (200ng/ml); URINE CANNABINOIDS (THC) < 50 (50ng/ml); URINE COCAINE < 300 (300ng/ml); URINE METHADONE < 300 (300ng/ml); URINE OPIATES > 300 (300ng/ml)
[2019-01-10 12:10] LABS: URINE PHENCYCLIDINE < 25 (25ng/ml)
--- NOTE | 2019-01-10 12:17 | NUR ---
PHARMACY CALLED REGARDING SUBUTEX, HE WILL CALL DR. RICHARDSON.
--- NOTE | 2019-01-10 12:59 | NUR ---
CALLED DR. RICHARDSON MADE AWARE PT REQUESTING ZOFRAN FOR NAUSEA. ORDERS TAKEN AND REVIEWED.
--- NOTE | 2019-01-10 13:00 | NUR ---
PT TOLERATED ROUTINE SUBUTEX PER ORDER, CALL LIGHT IN REACH.
--- NOTE | 2019-01-10 13:45 | NUR ---
PT RESTING IN BED WITH EYES CLOSED. RESP-EASY AND REGULAR AT THIS TIME. OXYGEN IN USE. CALL LIGHT IN REACH.
--- NOTE | 2019-01-10 15:45 | NUR ---
PT MEDICATED WITH ZOFRAN IV PER ORDER FOR C/O NAUSEA. VISITOR AT HER SIDE. CALL LIGHT IN REACH. SEE SHIFT ASSESSMENT.
[2019-01-11] VITALS: BP 174/98
--- NOTE | 2019-01-11 | NUR ---
PT REQUESTED AND RECIEVED PRN ATIVAN AND REQUIP. PT COMPLAINING OF RESTLESS LEGS AND FEELING ANXIOUS. WILL MONITOR FOR EFFECTIVENESS.
--- NOTE | 2019-01-11 01:00 | NUR ---
PT SLEEPING. PREVIOUS PRNS CONSIDERED EFFECTIVE.
[2019-01-11 07:28] LABS: BASO % 0.3 % (0.0-1.0); EOS % 0.2 % (1.0-4.0); HEMATOCRIT 42.3 % (37.0-47.0); HEMOGLOBIN 13.5 g/dl (12.0-16.0); LYMPH # 1.4 10*3/uL (1.3-4.4); LYMPH % 11.2 % (27.0-41.0); MEAN CELL VOLUME 85.8 fl (81.0-99.0); MEAN CORPUSCULAR HGB 27.4 pg (27.0-31.0); MEAN CORPUSCULAR HGB CONC 31.9 g/dl (33.0-37.0); MEAN PLATELET VOLUME 9.1 fl (9.6-12.3); MONO # 0.8 10*3/uL (0.1-1.0); MONO % 6.5 % (3.0-9.0); NEUT # 9.8 10*3/uL (2.3-7.9); NEUT % 80.9 % (47.0-73.0); PLATELET COUNT AUTOMATED 469 10*3/uL (130-400); RED BLOOD COUNT 4.93 10*6/uL (4.10-5.10); WHITE BLOOD COUNT 12.1 10*3/uL (4.8-10.8)
--- NOTE | 2019-01-11 09:00 | NUR ---
Mitigation Supervisor in to talk to patient. Patient states lives at home with her and daughter living in the basement. There are basement steps in the home. Physician: Dr. Antonio Kruger Pharmacy: [facility] Home health services: none Patient's level of ADLs: INDEPENDENT Patient has working utilities: yes DME: O2 @ 2L nc prn, portable O2 tanks, nebulizer, O2 supplier [facility] Follow-up physician's appointment after d/c: she prefers to make her own follow up appt after discharge Does patient want to access PORTAL?: no Discharge plan discussed with patient. She lives at home with her and daughter living in the basement. She is independent in her ADLs and ambulation. Discussed home health care services and she denies any home needs at this time. Her is at the bedside. When medically stable she will be discharged to home. LUIS ARMANDO VASQUEZ
[2019-01-11 12:00] VITALS: BP 110/78
[2019-01-11 16:00] VITALS: BP 91/61
[2019-01-11 20:00] VITALS: BP 93/65
--- NOTE | 2019-01-11 20:00 | NUR ---
AAOX3 SITTING UP IN BED. 02 INTACT A 2LPM VIA NASAL CANNULA; PULSE OX 92%a. LUNGS DIMINISHED BILATERALLY & PATIENT HAS A MOIST COUGH. PT. VOICES NO C/O AT THIS TIME. NO DISTRESS NOTED. CALL LIGHT WITHIN REACH.
[2019-01-12] VITALS: BP 125/81
--- NOTE | 2019-01-12 | NUR ---
RESTING IN BED WITH EYES CLOSED. RESPIRATIONS UNLABORED. CALL LIGHT WITHIN REACH.
--- NOTE | 2019-01-12 06:00 | NUR ---
BLOOD SUGAR 153.
[2019-01-12 06:39] LABS: BASO % 0.1 % (0.0-1.0); HEMATOCRIT 41.1 % (37.0-47.0); HEMOGLOBIN 13.1 g/dl (12.0-16.0); LYMPH # 0.8 10*3/uL (1.3-4.4); LYMPH % 8.1 % (27.0-41.0); MEAN CELL VOLUME 87.6 fl (81.0-99.0); MEAN CORPUSCULAR HGB 27.9 pg (27.0-31.0); MEAN CORPUSCULAR HGB CONC 31.9 g/dl (33.0-37.0); MEAN PLATELET VOLUME 8.8 fl (9.6-12.3); MONO # 0.3 10*3/uL (0.1-1.0); MONO % 2.9 % (3.0-9.0); NEUT # 8.6 10*3/uL (2.3-7.9); NEUT % 88.2 % (47.0-73.0); PLATELET COUNT AUTOMATED 431 10*3/uL (130-400); RED BLOOD COUNT 4.69 10*6/uL (4.10-5.10); RED CELL DISTRI WIDTH 14.1 % (0-14.5); WHITE BLOOD COUNT 9.8 10*3/uL (4.8-10.8)
--- NOTE | 2019-01-12 07:55 | NUR ---
ASSESSMENT COMPLETED. SEE ASSESSMENT INTERVENTION. VOICES NO CONCERNS AT THIS TIME. NO SIGNS OR SYMPTOMS OF DISTRESS. BRAZING MACHINE TENDER INTACT.
[2019-01-12 08:00] VITALS: BP 148/78
--- NOTE | 2019-01-12 09:34 | NUR ---
PATIENT TAKES PO MEDICATIONS AT WITH SIPS OF WATER. NO SIGNS OR SYMPTOMS OF DISTRESS.
[2019-01-12 12:00] VITALS: BP 154/80; BP 167/89
[2019-01-12 16:00] VITALS: BP 100/65
[2019-01-12 18:06] LABS: BUN 24 mg/dl (7-24); CHLORIDE 105 mmol/L (98-107); POTASSIUM 4.6 mmol/L (3.5-5.1); SODIUM 139 mmol/L (136-145)
--- NOTE | 2019-01-12 20:00 | NUR ---
SLEEPING; 02 INTACT. RESPIRATIONS EASY & UNLABORED. CALL LIGHT WITHIN REACH.
--- NOTE | 2019-01-12 21:05 | NUR ---
AROUSES EASILY TO TAKE PO MEDICATIONS. 02 REMAINS INTACT. PT. VOICES NO C/O AT THIS TIME. CALL LIGHT WITHIN REACH.
[2019-01-13] VITALS: BP 121/69
[2019-01-13 06:34] LABS: BASO % 0.1 % (0.0-1.0); HEMATOCRIT 41.1 % (37.0-47.0); HEMOGLOBIN 12.6 g/dl (12.0-16.0); LYMPH # 0.7 10*3/uL (1.3-4.4); LYMPH % 7.8 % (27.0-41.0); MEAN CORPUSCULAR HGB 27.3 pg (27.0-31.0); MEAN CORPUSCULAR HGB CONC 30.7 g/dl (33.0-37.0); MONO # 0.2 10*3/uL (0.1-1.0); MONO % 2.4 % (3.0-9.0); NEUT # 7.9 10*3/uL (2.3-7.9); PLATELET COUNT AUTOMATED 433 10*3/uL (130-400); RED BLOOD COUNT 4.62 10*6/uL (4.10-5.10); RED CELL DISTRI WIDTH 14.3 % (0-14.5); WHITE BLOOD COUNT 8.9 10*3/uL (4.8-10.8)
[2019-01-13 08:00] VITALS: BP 122/60
[2019-01-13 12:00] VITALS: BP 113/73
[2019-01-13 16:00] VITALS: BP 107/52
[2019-01-13] MEDS ORDERED: ATIVAN0.5 MG PO (19:48)
[2019-01-13] MEDS ORDERED: Ondansetron8 MG PO (19:48)
[2019-01-13 20:00] VITALS: BP 109/68
--- NOTE | 2019-01-13 20:30 | NUR ---
PT DISCHARGED HOME AT THIS TIME. DISCHARGE INSTRUCTIONS REVIEWED. [employer] TEAMMATE DISCONTINUED.
== END 2019-01-13 21:10 | disposition home or self-care (01) | DRG 191 ==
LOC: ED 02:31 → EDHOLD 04:25 → 5E 04:25
PROVIDERS: Emergency Medicine Emergency Medical Services; ADMIT Internal Medicine
DX: J44.1 Chronic obstructive pulmonary disease with (acute) exacerbation (principal); F14.23 Cocaine dependence with withdrawal; F11.20 Opioid dependence, uncomplicated; J45.41 Moderate persistent asthma with (acute) exacerbation; F33.1 Major depressive disorder, recurrent, moderate; J44.0 Chronic obstructive pulmonary disease with (acute) lower respiratory infection; F17.210 Nicotine dependence, cigarettes, uncomplicated; I10 Essential (primary) hypertension; K21.0 Gastro-esophageal reflux disease with esophagitis; J20.9 Acute bronchitis, unspecified; E11.9 Type 2 diabetes mellitus without complications; G40.409 Other generalized epilepsy and epileptic syndromes, not intractable, without status epilepticus; E78.00 Pure hypercholesterolemia, unspecified; E78.2 Mixed hyperlipidemia; M19.90 Unspecified osteoarthritis, unspecified site; G25.81 Restless legs syndrome; E87.6 Hypokalemia; Z91.048 Other nonmedicinal substance allergy status; Z88.0 Allergy status to penicillin; Z88.5 Allergy status to narcotic agent; Z88.8 Allergy status to other drugs, medicaments and biological substances; Z91.030 Bee allergy status; Z85.118 Personal history of other malignant neoplasm of bronchus and lung; Z86.73 Personal history of transient ischemic attack (TIA), and cerebral infarction without residual deficits; Z90.49 Acquired absence of other specified parts of digestive tract; Z90.710 Acquired absence of both cervix and uterus; Z80.42 Family history of malignant neoplasm of prostate; Z82.49 Family history of ischemic heart disease and other diseases of the circulatory system; Z82.3 Family history of stroke; Z92.21 Personal history of antineoplastic chemotherapy; Z92.3 Personal history of irradiation; Z80.1 Family history of malignant neoplasm of trachea, bronchus and lung

== ENCOUNTER 2019-04-23 10:28 | Inpatient (IN) | payer OTHER ==
[2019-04-23] VITALS (7 sets, daily range): BP systolic 140–177; BP diastolic 80–98
[~2019-04-23] VITALS: Ht 165.1 cm; Wt 46.7 kg
--- NOTE | ~2019-04-23 | EKG ---
[place], [place] ELECTROCARDIOGRAM REPORT NAME: GARFIELD YUNG UNIT #: [id number] ROOM: [facility] DOCTOR: MADDIE DRAFT REPORT BIRTHDATE: [birth year] [facility] Test Date: 2019-04-23 Test Time: 10:48:34 Pat Name: GARFIELD YUNG Department: Room: [facility] Gender: F Senior Pastor: : [id number] Requested By: JEANETH WOOD Order Number: [id number] Reading MD: Kaiden Klein MD Measurements Intervals [place] Rate: 103 P: 78 OK: 147 QRS: 55 QRSD: 87 T: 72 QT: 403 QTc: 528 Interpretive Statements Sinus tachycardia Consider left atrial enlargement Minimal ST elevation, inferior leads Prolonged QT interval Compared to ECG 01/10/2019 08:58:30 ST (T wave) deviation now present Prolonged QT interval now present Early repolarization no longer present Electronically Signed On 04-25-2019 5:05:44 PDT by Kaiden Klein MD CM:EKGRPT:ELECTROCARDIOGRAM REPORT [id number] JEANETH MENDOZA EPIPHANY DRAFT REPORT JEANETH MENDOZA
--- NOTE | ~2019-04-23 | PROC NOTE ---
[place], [place] PROCEDURE NOTE NAME: GARFIELD YUNG [facility] #: [id number] UNIT #: [id number] ROOM: 515 DOCTOR: TOBIAS MCGOVERN BIRTHDATE: [birth year] DOS: 04/25/2019 MODIFIED BARIUM SWALLOW LOCATION: [facility], room 515, bed 1. ORDERING PHYSICIAN: Minnie Berrios DO RADIOLOGIST: Dr. Aguilera. BACKGROUND INFORMATION: The patient is a 63-year-old female who was seen for a modified barium swallow. This test was ordered due to difficulty swallowing food. The patient was admitted to [facility] for substance abuse. Further medical history includes lung cancer with resection, COPD exacerbation, SIRS, TIA, seizures, cervical cancer and anxiety and depression. The patient was alert and cooperative and reported that foods occasionally stick and she has difficulty swallowing. She stated that this has been occurring over the past couple of months. The patient receives a regular diet and thin liquid. Oral peripheral examination revealed presence of upper and lower denture. The patient reported bottoms as loose and stated that she needs denture adhesive to keep them in. Lingual, labial, and buccal skills were within normal limits in terms of strength, range of motion, and coordination. The patient was able to volitionally cough and swallow. METHODS AND MATERIALS USED FOR THE EXAM: The patient was positioned in the lateral plane and the exam was viewed under fluoroscopy. The patient was presented with a variety of consistencies to assess swallowing skills including applesauce mixed with barium presented in half teaspoon amounts, barium-coated cookie and sandwich given in bite size pieces and thin liquid barium taken independently by cup and straw. ORAL PHASE: Adequate labial seal was displayed around cup, spoon and straw with no anterior loss. Bolus formation was adequate. Oral transit was mildly impaired with solids. Mastication was slow, but functional with solids. Some piecemeal swallow was displayed with barium-coated sandwich. Tongue to palate contact was within normal limits with all consistencies. Tongue retraction was within normal limits. Velar functioning was within normal limits with no nasal regurgitation displayed. PHARYNGEAL PHASE: Unremarkable. ESOPHAGEAL PHASE: This phase of the swallow was not formally assessed during this exam. IMPRESSIONS AND RECOMMENDATIONS: Based upon assessment results, this 63-year-old patient presented with a mild oral dysphagia characterized by slow oral transit and mastication of solids. This was likely due to dryness of the items given. The patient reported that she always feels like her mouth is dry and stated that this sandwich given was dry and hard to swallow. There was no [place], [place] PROCEDURE NOTE NAME: GARFIELD YUNG UNIT #: [id number] ROOM: [facility] DOCTOR: TOBIAS MCGOVERN BIRTHDATE: [birth year] penetration or aspiration occurring with any consistency. No pharyngeal residue was displayed. Recommend the patient remain on present diet with use of safe swallow precautions such as small bites and sips, alternating liquids and solids and taking extra drinks to clear foods as needed. Results and recommendations were shared with the patient and her nurse and they verbalized understanding. No followup treatment is warranted at this time. Thank you very much for this referral. Should you have any questions regarding this patient, please contact the speech pathologist at [phone]. TOBIAS MCGOVERN CM:PROCNOTE:PROCEDURE NOTE [id number] MINNIE MCGOVERN
[~2019-04-23 10:28] MED LIST changes: +ATIVAN0.5 MG PO; +FLUTICASONE PROPIONA; +GOOD NEIGHBOR L10 MG PO; +GOOD NEIGHBOR150 MG PO; +METFORMIN HYDR500 MG PO; +Ondansetron8 MG PO; +TOPIRAMATE50 M2 PO
--- NOTE | 2019-04-23 10:46 | NUR ---
Patient prompted for urine specimen. Unable to urinate at this time. Call light within reach.
[2019-04-23 10:53] LABS: BASO # 0.1 10*3/uL (0.0-0.1); BASO % 0.7 % (0.0-1.0); EOS % 0.4 % (1.0-4.0); HEMATOCRIT 42.5 % (37.0-47.0); HEMOGLOBIN 13.1 g/dl (12.0-16.0); LYMPH % 14.6 % (27.0-41.0); MEAN CELL VOLUME 88.5 fl (81.0-99.0); MEAN CORPUSCULAR HGB 27.3 pg (27.0-31.0); MEAN CORPUSCULAR HGB CONC 30.8 g/dl (33.0-37.0); MEAN PLATELET VOLUME 8.5 fl (9.6-12.3); MONO # 0.4 10*3/uL (0.1-1.0); MONO % 5.1 % (3.0-9.0); NEUT # 5.5 10*3/uL (2.3-7.9); NEUT % 78.9 % (47.0-73.0); PLATELET COUNT AUTOMATED 395 10*3/uL (130-400); RED CELL DISTRI WIDTH 13.7 % (0-14.5); WHITE BLOOD COUNT 6.9 10*3/uL (4.8-10.8)
[2019-04-23 11:08] LABS: ALBUMIN 3.1 gm/dl (3.1-4.5); ALKALINE PHOSPHATASE 86 U/L (45-117); BUN 9 mg/dl (7-24); CHLORIDE 105 mmol/L (98-107); CREATININE 0.66 mg/dL (0.55-1.02); POTASSIUM 4.4 mmol/L (3.5-5.1); SGOT/AST 6 IU/L (3-35); SGPT/ALT 10 U/L (12-78); SODIUM 138 mmol/L (136-145); TOTAL PROTEIN 8.5 gm/dL (6.4-8.2)
[2019-04-23 11:12] LABS: ACETAMINOPHEN (TYLENOL) < 5.0 ug/ml (10-30); ETHYL ALCOHOL < 3.0 mg/dl (<3)
[2019-04-23 12:12] LABS: BILIRUBIN NEGATIVE (NEGATIVE); BLOOD NEGATIVE (NEGATIVE); CLARITY SL CLOUDY (CLEAR); COLOR YELLOW (YELLOW); GLUCOSE NEGATIVE (NEGATIVE); KETONE NEGATIVE (NEGATIVE); LEUKO ESTERASE NEGATIVE (NEGATIVE); NITRITE NEGATIVE (NEGATIVE); PH 7.5 (5.0-9.0); UROBILINOGEN 0.2 E.U./dl (0.2-1.0)
[2019-04-23 12:18] LABS: URINE AMPHETAMINES < 1000 (1000ng/ml); URINE BARBITURATES < 200 (200ng/ml); URINE BENZODIAZEPINES < 200 (200ng/ml); URINE CANNABINOIDS (THC) < 50 (50ng/ml); URINE COCAINE < 300 (300ng/ml); URINE METHADONE < 300 (300ng/ml); URINE OPIATES < 300 (300ng/ml)
--- NOTE | 2019-04-23 12:18 | NUR ---
PATIENT MEETS [facility]. PATIENT WANTS TO FOLLOW UP WITH [facility] FOR [facility]PATIENT TREATMENT. RALEIGH MAHAN B.A.TRANSPORTATION MANAGER
[2019-04-23 12:23] LABS: URINE PHENCYCLIDINE < 25 (25ng/ml)
[2019-04-23 12:32] LABS: WBC 0-2 wbc/hpf (0-5)
--- NOTE | 2019-04-23 13:55 | NUR ---
No nurse able to take report at this time. When inpatient nurse is available they will call ED.
--- NOTE | 2019-04-23 14:05 | NUR ---
ATTEMPTED TO CONTACT ED RN. SHE WAS CURRENTLY UNAVAILABLE FOR REPORT. NOTIFIED STAFF TO BRING PT TO FLOOR TO ROOM 515-2.
--- NOTE | 2019-04-23 14:20 | NUR ---
A 63, admitted to 5E, under the services of JUSTINE Chavez DO with a diagnosis of SUBSTANCE ABUSE. Chief complaint is OPIATE WITHDRAWAL. Patient arrived via wheel chair from ER. Monitor applied. Initial assessment completed. Vital signs taken and recorded. JUSTINE CHAVEZ DO notified of admission to the unit. Orders received. See assessment for past medical history, medications and allergies. Patient and/or family oriented to unit. [facility] visitation policy reviewed. Clothing/patient valuable form completed. ROGER CHRISTIANSON
--- NOTE | 2019-04-23 15:17 | NUR ---
NICODERM 21 MG PATCH AND VISTARIL GIVEN PER NOV FOR ANXIETY.
--- NOTE | 2019-04-23 19:45 | NUR ---
C/O DISCOMFORT PAIN OF LEGS AND MUSCLE CRAMPS, MOTRIN AND REQUIP AND ROBAXIN GIVEN FOR THIS.
--- NOTE | 2019-04-23 19:48 | NUR ---
C/O NAUSEA AND STOMACH CRAMPS. BENTYL AND ZOAN GIVEN FOR THIS SEE MAR.
--- NOTE | 2019-04-23 20:14 | NUR ---
24 HR chart check completed.
--- NOTE | 2019-04-23 21:00 | NUR ---
WITHDRAWAL MED EFFECTIVE FOR PAIN, NAUSEA AND MUSCLE CRAMPS. PT. SLEEPING.
--- NOTE | 2019-04-23 22:31 | NUR ---
ROUTINE SUBUTEX GIVEN ORDERED. TRAZADONE PO FOR SLEEP. WILL MONITOR.
--- NOTE | 2019-04-23 23:45 | NUR ---
TRAZADONE EFFECTIVE. PT. SLEEPING.
[2019-04-24] VITALS (7 sets, daily range): BP systolic 123–155; BP diastolic 75–93
--- NOTE | 2019-04-24 02:00 | NUR ---
PT. RESTING QUIETLY EYES CLOSED. NO ACUTE DISTRESS NOTED.
--- NOTE | 2019-04-24 05:00 | NUR ---
[place] EASILY FOR CHECK AND PO MEDICAION ADMINISTRATION. NO C/O VOICED AT THIS TIME.
--- NOTE | 2019-04-24 15:07 | NUR ---
PATIENT IS GOING TO [facility] FOR INTENSIVE OUTPATIENT TREATMENT. [place] STAFF WILL SET UP APPOINTMENT FOR PATIENT. RALEIGH MAHAN B.A. RESPOOLER
--- NOTE | 2019-04-24 15:10 | NUR ---
PT MEDICATED WITH PRN ZOFRAN AND BENTYL FOR C/O NAUSEA AND ABDOMINAL CRAMPING. UNABLE TO CHART ON EMAR IT BECAME FROZEN AND WILL NOT CONNECT ON WOW. TICKET NUMBER WITH IT [id number].
--- NOTE | 2019-04-24 20:09 | NUR ---
PT.STATED ABOUT 1/2 HOUR AGAIN SHE VOMITED IN TRASH CAN. LARGE AMOUNT OF LIQUID IN TRASH CAN. C/O MUSCLE PAIN AND FEELING ANXIOUS. ROBAXIN, TYLENOL, MOTRIN GIVEN FOR PAIN AND VISTARIL GIVEN FOR ANXIETY.
--- NOTE | 2019-04-24 21:09 | NUR ---
BENTYL AND ZOFRAN GIVEN FOR NAUSEA. SEE MAR.
--- NOTE | 2019-04-24 22:09 | NUR ---
TRAZADONE GIVEN PER ORDER FOR INSOMNIA PER PT. REQUEST.SEE MAR.
--- NOTE | 2019-04-24 22:30 | NUR ---
NOTIFIED DR. PICKENS OF CHEST X-RAY RESULTS, NO ORDERS RECIEVED.
--- NOTE | 2019-04-24 23:30 | NUR ---
TRAZADONE EFFECTIVE PT. SLEEPING.
[2019-04-25] VITALS: BP 121/66
--- NOTE | 2019-04-25 00:08 | NUR ---
24 HR chart check completed.
--- NOTE | 2019-04-25 02:30 | NUR ---
SLEEPING NO ACUTE DISTRESS NOTED.
--- NOTE | 2019-04-25 04:11 | NUR ---
SLEEPING NO ACUTE DISTRESS NOTED.
--- NOTE | 2019-04-25 06:10 | NUR ---
IV started right forearm with #22 angiocath after 1st attempts. The IV site was prepped with Chloraprep. Heparin lock attached. Sterile dressing applied. Patient tolerated precedure well. Procedure performed according to [facility] policy & procedure. RICHARDSON MARSHALL
[2019-04-25 08:00] VITALS: BP 120/71
--- NOTE | 2019-04-25 09:11 | NUR ---
PT REQUESTED "ALL OF MY NEEDED MEDICATIONS", RESTLESS LEG, NAUSEA, ACHE - PT HAS MULTIPLE COMPLAINTS. PRN MEDICATIONS GIVEN, SEE EMAR. WILL MONITOR FOR EFFECTIVENESS
--- NOTE | 2019-04-25 09:12 | NUR ---
PT IN SHOWER
--- NOTE | 2019-04-25 10:15 | NUR ---
PT STATES PRN MEDICTIONS EFFECTIVE, NO NEED STATED AT THIS TIME
--- NOTE | 2019-04-25 11:42 | NUR ---
PEPCID GIVEN, FIRST DOSE. PT HAS TAKEN MEDIATION IN PAST, NO QUESTIONS AT THIS TIME
[2019-04-25 12:00] VITALS: BP 106/69
--- NOTE | 2019-04-25 14:02 | NUR ---
[place] STAFF REVIEWED AFTERCARE PLAN WITH PATIENT. PATIENT IS FOLLOWING UP WITH [facility] FOR OUTPATIENT TREATMENT ON MONDAY, April AT 10:30AM. PATIENT AGREES AND UNDERSTANDS HER AFTERCARE PLAN. RALEIGH MAHAN B.A. FIELD SALES REPRESENTATIVE
--- NOTE | 2019-04-25 14:59 | NUR ---
RETURN FROM BARIUM SWALLOW STUDY
--- NOTE | 2019-04-25 15:01 | NUR ---
SPEECH PATHOLOGY Modified barium swallow completed as per orders due to difficulty swallowing food. Patient was admitted to [facility] for substance abuse. Further medical history includes lung CA with resection, COPD exac., SIRS, TIA, seizures, cervical CA, anxiety/depression. Patient was alert and cooperative and reported foods occasionally sticking and difficulty swallowing over past couple months. She receives a regular diet and thin liquid. Oral exam revealed presence of upper and lower dentures. Lingual/labial and buccal skills were WNL in terms of strength, ROM and coordination. Patient was assessed with puree, solids and thin liquid by cup and straw. Patient displayed mild oral difficulty with slow chewing and transit of sandwich which was likely due to items being dry. Patient reported that she always feels like her mouth is dry and stated that the sandwich given was dry and hard to swallow. There was no penetration/aspiration or residue with any consistency. Recommend patient remain on present diet with use of safe swallow precautions such as small bites and sips, alternating liquid and solid and taking extra drinks to clear foods as needed. Results and maurice. were shared with patient and her nurse and they verbalized understanding. No follow up treatment is warranted at this time. Dictated report to follow. Thank you for this referral. TOBIAS MCGOVERN MSCCC-DIGITAL SERVICE ENGINEER
[2019-04-25 16:00] VITALS: BP 121/76
--- NOTE | 2019-04-25 16:32 | NUR ---
PT COMPLAIN IF HEADACHE, STATES "HEAD IS GOING TO EXPLODE, NEED ALL OF THE NEEDED MEDICATIONS I CAN HAVE".
--- NOTE | 2019-04-25 17:21 | NUR ---
PT CONTINUES TO COMPLAIN OF HEADACHE, MOTRIN GIVEN
[2019-04-25 20:00] VITALS: BP 125/83
[2019-04-26] VITALS: BP 121/73
[2019-04-26 08:00] VITALS: BP 130/66
--- NOTE | 2019-04-26 08:30 | NUR ---
RESTING IN BED. DENIES ANY COMPLAINTS.
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
--- NOTE | 2019-04-26 10:20 | NUR ---
MEDICATED WITH VISTARIL AND REQUIP ORDERED FOR ANXIETY AND RESTLESS LEG
[2019-04-26] MEDS ORDERED: LEVOFLOXACIN500 MG PO (11:24)
[2019-04-26] MEDS ORDERED: ATARAX,VISTARIL50 MG PO (11:24)
[2019-04-26] MEDS ORDERED: PREDNISONE10 MG PO (11:24)
[2019-04-26] MEDS ORDERED: METHOCARBAMOL750 M1 PO (11:24)
[2019-04-26] MEDS ORDERED: ZOFRAN 4 MG ED2 TAB PO (11:45)
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
--- NOTE | 2019-04-26 13:15 | NUR ---
Discharge instructions reviewed with patient/family. Patient receptive and verbalizes understanding. Follow-up care arranged. Written instructions given to patient/family. KENNEDY RAPP
== END 2019-04-26 13:15 | disposition home or self-care (01) | DRG 191 ==
LOC: ED 10:28 → 5E 13:36 → EDHOLD 13:36 → 5E 13:52
PROVIDERS: Physician Assistant; ADMIT Internal Medicine
PROC: BD1BYZZ Fluoroscopy of Mouth/Oropharynx using Other Contrast (ICD-10-PCS; principal; 2019-04-25)
DX: J44.1 Chronic obstructive pulmonary disease with (acute) exacerbation (principal); R65.10 Systemic inflammatory response syndrome (SIRS) of non-infectious origin without acute organ dysfunction; F11.23 Opioid dependence with withdrawal; J90 Pleural effusion, not elsewhere classified; G62.9 Polyneuropathy, unspecified; G43.909 Migraine, unspecified, not intractable, without status migrainosus; I10 Essential (primary) hypertension; F17.210 Nicotine dependence, cigarettes, uncomplicated; M19.90 Unspecified osteoarthritis, unspecified site; K21.9 Gastro-esophageal reflux disease without esophagitis; R13.10 Dysphagia, unspecified; E78.00 Pure hypercholesterolemia, unspecified; R73.9 Hyperglycemia, unspecified; R56.9 Unspecified convulsions; Z71.6 Tobacco abuse counseling; Z88.5 Allergy status to narcotic agent; Z88.8 Allergy status to other drugs, medicaments and biological substances; Z91.030 Bee allergy status; Z90.49 Acquired absence of other specified parts of digestive tract; Z90.710 Acquired absence of both cervix and uterus; Z82.49 Family history of ischemic heart disease and other diseases of the circulatory system; Z80.42 Family history of malignant neoplasm of prostate; Z80.8 Family history of malignant neoplasm of other organs or systems; Z82.3 Family history of stroke; Z86.73 Personal history of transient ischemic attack (TIA), and cerebral infarction without residual deficits; Z85.118 Personal history of other malignant neoplasm of bronchus and lung; Z79.82 Long term (current) use of aspirin; Z79.899 Other long term (current) drug therapy

== ENCOUNTER → 2019-05-23 | Outpatient (CLI) | payer OTHER ==
[~2019-05-23] MED LIST changes: +LEVOFLOXACIN500 MG PO; +METHOCARBAMOL750 M1 PO; +PREDNISONE10 MG PO
[2019-05-23 10:00] LABS: BASO # 0.1 10*3/uL (0.0-0.1); BASO % 0.7 % (0.0-1.0); EOS # 0.1 10*3/uL (0.0-0.4); LYMPH # 0.9 10*3/uL (1.3-4.4); LYMPH % 13.1 % (27.0-41.0); MEAN CELL VOLUME 85.4 fl (81.0-99.0); MEAN CORPUSCULAR HGB 26.6 pg (27.0-31.0); MEAN CORPUSCULAR HGB CONC 31.1 g/dl (33.0-37.0); MEAN PLATELET VOLUME 8.9 fl (9.6-12.3); MONO # 0.5 10*3/uL (0.1-1.0); MONO % 6.7 % (3.0-9.0); NEUT # 5.3 10*3/uL (2.3-7.9); NEUT % 77.1 % (47.0-73.0); PLATELET COUNT AUTOMATED 367 10*3/uL (130-400); RED BLOOD COUNT 5.27 10*6/uL (4.10-5.10); RED CELL DISTRI WIDTH 14.1 % (0-14.5); WHITE BLOOD COUNT 6.9 10*3/uL (4.8-10.8)
[2019-05-23 10:11] LABS: ALBUMIN 3.3 gm/dl (3.1-4.5); ALKALINE PHOSPHATASE 92 U/L (45-117); BUN 11 mg/dl (7-24); CHLORIDE 104 mmol/L (98-107); CHOLESTEROL 192 mg/dL (<200); HDL CHOLESTEROL 72 mg/dl (40-60); LDL CHOLESTEROL 105 mg/dL (9-159); POTASSIUM 4.1 mmol/L (3.5-5.1); SGOT/AST 11 IU/L (3-35); SGPT/ALT 10 U/L (12-78); SODIUM 137 mmol/L (136-145); TRIGLYCERIDES 74 mg/dl (<150); VLDL CHOLESTEROL 15 mg/dL (6-40)
[2019-05-24 13:03] LABS: CREATININE,URINE 45.4 mg/dL (Not Estab.)
== END | disposition home or self-care (01) ==
LOC: LAB 09:18
PROVIDERS: Nurse Practitioner Family
DX: I10 Essential (primary) hypertension (principal); J44.9 Chronic obstructive pulmonary disease, unspecified; E78.2 Mixed hyperlipidemia; J30.9 Allergic rhinitis, unspecified; E11.40 Type 2 diabetes mellitus with diabetic neuropathy, unspecified; G43.809 Other migraine, not intractable, without status migrainosus; R10.13 Epigastric pain; R56.9 Unspecified convulsions

== ENCOUNTER → 2019-07-11 | Outpatient (CLI) | payer OTHER ==
[~2019-07-11] MED LIST changes: +SUBOXONE 8 MG-1 EACH SL
[2019-07-11 09:17] LABS: BUN 14 mg/dl (7-24); CREATININE 0.87 mg/dL (0.55-1.02)
== END | disposition home or self-care (01) ==
LOC: CT 08:40
PROVIDERS: Internal Medicine Critical Care Medicine
DX: J32.0 Chronic maxillary sinusitis (principal); K83.8 Other specified diseases of biliary tract; R91.8 Other nonspecific abnormal finding of lung field; R06.1 Stridor

== ENCOUNTER 2019-07-19 08:04 | Inpatient (IN) | payer OTHER ==
[~2019-07-19] VITALS: Ht 152.4 cm; Wt 52.6 kg
--- NOTE | ~2019-07-19 | DS ---
[place], [place] DISCHARGE SUMMARY NAME: [facility] #: [id number] UNIT #: [id number] ROOM: [facility] DOCTOR: MIMI RAMOS MD BIRTHDATE: [birth year] DOS: 07/20/2019 HOSPITAL COURSE: This is a 63-year-old white female patient underwent fibrobronchoscopy with general anesthesia. The patient has acute pulmonary insufficiency, post-surgery, the patient kept in the Intensive Care Unit. She was successfully liberated from mechanical ventilation after several hours on the mechanical ventilated. There was not any abnormal bleeding noted. The patient did well. Oxygen supplementation gradually titrated off. She was noted on room air of oxygen supplementation baseline. She had been doing well this morning, seen sitting on the side of the bed and ready to be discharged home settings. She has been given her previous home medication, which has been resumed prior to discharge and was started yesterday as well. Hemodynamically, the patient was noted stable without any hemodynamic instability. Low-grade fever noted in the afternoon yesterday at 100.4 most likely related due to the bronchoscopy. The cultures of the bronchial washing noted normal raffy, final culture results were pending. Other labs done on this patient reviewed CBC and CMP yesterday, which were all noted normal. Hypercapnia noted, which were resolved later on. FINAL DISCHARGE DIAGNOSES: 1. 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 2. History of small cell cancer, status post right upper lobectomy, radiation chemotherapy in 2002 which was resolved completely. 3. Chronic obstructive pulmonary disease. 4. General anxiety disorder. 5. Gastroesophageal reflux. 6. History of type 2 diabetes mellitus. 7. Epilepsy. 8. Restless leg syndrome. 9. Allergic rhinitis. 10. General anxiety disorder and depression. 11. Essential hypertension. COMPLICATIONS: None. PLAN: No invasive procedure was done after the bronchoscopy. Resume her previous home medication in the home setting that include use of metoprolol succinate 50 mg daily, loratadine 10 mg daily, aspirin 81 mg daily, metformin 500 mg p.o. b.i.d., omeprazole 40 mg daily, Suboxone 1 p.o. daily, Topamax 50 mg at bedtime, Requip 0.5 mg at bedtime, meloxicam 7.5 mg p.o. b.i.d. p.r.n. for pain, Keppra 500 mg p.o. b.i.d., albuterol sulfate 2.5 nebulizer q.i.d. p.r.n. for shortness of breath, use of Spiriva and Symbicort inhaler as previously used as well. [place], [place] DISCHARGE SUMMARY NAME: AGALUCYJJ Ryan UNIT #: [id number] ROOM: [facility] DOCTOR: MIMI RAMOS MD BIRTHDATE: [birth year] MIMI SANCHEZ MD CM:ROSIE [id number] MIMI SANDHU MD 07/20/19 1433 interface
--- NOTE | ~2019-07-19 | PROC NOTE ---
[place], [place] PROCEDURE NOTE [id number] UNIT #: [id number] ROOM: [facility] DOCTOR: DANIEL SANDHU MD,MIMI BIRTHDATE: [birth year] DOS: 07/19/2019 PREOPERATIVE DIAGNOSES: The patient with a cough as well as an inspiratory stridor with a mass lesion noted in the right hilar area, infiltration possibility of tracheal lumen and the jean pierre area. POSTOPERATIVE DIAGNOSES: The patient with a cough as well as an inspiratory stridor with a mass lesion noted in the right hilar area, infiltration possibility of tracheal lumen and the jean pierre area. PROCEDURE DESCRIPTION: Informed consent obtained for the patient. The patient brought to the OR and placed in the supine position. Conscious sedation was administered initially. The bronchoscope was advanced into the airway into the laryngeal area. Epiglottis and vocal cords were both seen. Vocal cords seemed to be moving symmetrically and not noted with any paralysis. The bronchoscope was advanced to the vocal cord into the tracheal lumen. Lower part trachea noted with a necrotic mass present in the jean pierre level with significant irregularity on the lower portion of the trachea as well. After that, further procedure was done under general anesthesia. The patient was successfully intubated and started under general anesthesia. The bronchoscope was introduced again to the endotracheal tube, lower part of the trachea. Significant infiltration of the right lateral wall of the trachea has somewhat purplish posterior membranous portion with the tumor was also noted with necrotic mass lesion noted at the jean pierre narrowing of both the left and the right main stem bronchi. The infiltration was present extending into the upper portion of the left main stem bronchus and some to the right bronchus intermedius as well. The biopsy was done successfully, several biopsies taken of the necrotic mass and other area, which were noted abnormal under the general anesthesia. A 20 mL of 1:10,000 epinephrine was also lavaged in the area to prevent any bleeding and bleeding was noted essentially less than 1-2 mL. The patient was decided to continue to be intubated for further care and then will be liberated from mechanical ventilator several hours later and the patient will be admitted to the hospital for further care. The samples sent for culture as well as pathology specimen and cytology. MIMI SANCHEZ MD CM:PROCNOTE:PROCEDURE NOTE [id number] MIMI SANDHU MD
--- NOTE | ~2019-07-19 | WRIGHTHP ---
[place], [place] PATIENT HISTORY AND PHYSICAL EXAM NAME: [facility] #: [id number] UNIT #: [id number] ROOM: [facility] DOCTOR: DANIEL SANDHU MD,MIMI BIRTHDATE: [birth year] DOS: 07/19/2019 REASON FOR ADMISSION: Acute pulmonary insufficiency with bronchoscopy. HISTORY OF PRESENT ILLNESS: This is a 63-year-old white female patient who has been currently investigated in the office for the symptoms of inspiratory stridor, shortness of breath and also noted with a mass-like lesion, which was confirmed with recent CT scan of chest as an outpatient. The patient brought to the OR for outpatient procedure. She has been noted with a large infiltrating tumor of the jean pierre and the posterior and lateral wall of the lower trachea and other abnormalities. The biopsy was completed. The patient was continued to be on the mechanical ventilator to prevent any bleeding from post-procedure and biopsy. The patient has been admitted to the Intensive Care Unit for further medical management. REVIEW OF SYSTEMS: Could not be performed since the patient is already noted on the mechanical ventilator, intubated. All the other history contained documented review medical record known to me from her consultation, at this hospital, previously in my office records. PAST MEDICAL HISTORY: 1. Essential hypertension. 2. Neurotic depression. 3. General anxiety disorder. 4. Type 2 diabetes mellitus. 5. Epilepsy. 6. Gastroesophageal reflux. 7. Restless legs syndrome. 8. Allergic rhinitis. 9. Small cell cancer with resection of the lung, right upper lobe chemotherapy and radiation therapy in 2002. 10. Severe chronic obstructive pulmonary disease. 11. A 2 cm mass of the right main stem bronchus and the lateral wall of trachea, possible infiltration as well. The diagnosis was assessed on 07/11/2019, CT scan of the chest. SOCIAL HISTORY: The patient is , has 4 children, lives at home. She has been noted with tobacco use from the age of [age] years old, 1.5 pack of cigarettes per day mostly except short term tobacco abstinence. She does not have any history of alcohol use or any illicit drug use. PAST SURGICAL HISTORY: 1. Laparoscopic cholecystectomy. 2. Partial hysterectomy. 3. Removal of ovarian cyst on the right side. 4. Bronchoscopy, mediastinoscopy in 2002 as well as right upper lung resection. 5. Bronchoscopy that was done today with bronchial biopsy was taken under general anesthesia on 07/19/2019. FAMILY HISTORY: The patient's father at age 70 due to complication of [place], [place] PATIENT HISTORY AND PHYSICAL EXAM NAME: [facility] #: [id number] UNIT #: [id number] ROOM: [facility] DOCTOR: SHIELA RAMOS MDM BIRTHDATE: [birth year] prostate cancer. Mother at 77 due to complications of the lung cancer. HOME MEDICATIONS: Listed as: 1. Generic Advair 232/14 one inhalation b.i.d. 2. Incruse Ellipta 1 inhalation daily. 3. Recent antibiotic completion, Levaquin 500 mg daily. 4. Zepoxin one daily. 5. Requip 0.5 mg at bedtime. 6. Omeprazole 40 mg daily. 7. Loratadine 10 mg daily. 8. Flonase one inhalation b.i.d. 9. Metoprolol succinate 50 mg p.o. daily. 10. Aspirin 81 mg daily. 11. Metformin 500 mg p.o. b.i.d. 12. Lovastatin 40 mg daily. 13. Topamax 40 mg daily. 14. Meloxicam 15 mg p.r.n. for pain. 15. Albuterol sulfate with 2 inhalations q.i.d. p.r.n. for shortness of breath. 16. Famotidine 20 mg daily. 17. Vitamin D 125 mg daily. 18. Keppra 500 mg p.o. b.i.d. DRUG ALLERGY HISTORY: Noted as allergies: 1. PENICILLIN. 2. MORPHINE. PHYSICAL EXAMINATION: GENERAL: A 63-year-old female who is currently intubated. Height of 5 feet, weight of 116 pounds. The patient's BMI 22.6. VITAL SIGNS: Recorded normal temperature, respiratory rate of 16, heart rate of 103, blood pressure 116/73. Pulse ox saturation recorded 100% saturation. HEENT: Shows head was atraumatic. Eyes nonicterus. NECK: Supple. CARDIOVASCULAR: S1, S2 is audible. LUNGS: The patient was noted without any wheeze or crackles. Breaths are noted mildly decreased bilaterally. ABDOMEN: Soft, nontender. Bowel sounds present. EXTREMITIES: The patient was noted without any acute edema, clubbing, or cyanosis. MUSCULOSKELETAL: Without acute deformities. CENTRAL NERVOUS SYSTEM: The patient was noted intact prior to the surgery. Currently, the patient is sedated. LABORATORY DATA: Arterial blood gas that was done after admission, pH of 7.21, pCO2 of 62, pO2 134 with 40% oxygen on the mechanical ventilator with assist control, volume control. CBC: WBC count 8.5, hemoglobin 12.3, platelet count was noted as normal. CMP that was done this morning was noted essentially normal CMP as well. Chest x-ray post-surgery noted endotracheal tube appropriately positioned. Both lungs were noted expanded. Volume loss on the right side, was noted with surgical changes. Prominent right hilar area. [place], [place] PATIENT HISTORY AND PHYSICAL EXAM NAME: [facility] #: [id number] UNIT #: [id number] ROOM: [facility] DOCTOR: MIMI RAMOS MD BIRTHDATE: [birth year] IMPRESSION: 1. The patient who has been currently noted with infiltrating tumor of the jean pierre as the part of the trachea with recurrence of lung cancer where the non-small cell to be assessed. 2. Acute pulmonary insufficiency, post-surgery as well. 3. Hypercapnia secondary to chronic hypercapnic respiratory failure. 4. Chronic nicotine dependence. 5. History of small cell cancer past surgery, chemotherapy and radiation therapy in 2002. Multiple other medical problems noted in the past history. PLAN OF TREATMENT: She will be ordered the bronchodilators. She was started on CPAP motor mechanical ventilation, CPAP 5, pressure of 10 after 12 hours on mechanical ventilator with the intention of liberation from mechanical ventilator. Do not do any suction for any bleeding at the site of the recent biopsy. The postoperative findings as well as the admission process have been discussed with 2 other sisters in the recovery room. The patient would be continued on the Diprivan with the patient remains on mechanical ventilator, more than 24 hours. Additional treatment changes will be ordered including ventilator bundle management and assessment. Melo catheter will be placed temporary to prevent the urinary retention for short term. Other medical management to be done based on progression of the illness. Supportive care. Usual medical management. Assess any abnormal bleeding endotracheal tube prior to liberation from mechanical ventilation. DVT prophylaxis will be added later on to the treatment for this patient. If the patient remains nonambulatory in the next 24 hours. Other supportive therapy, plan of management, care plan treatment and management. Prognosis is guarded. The diet will be started oral, if the patient got liberated from mechanical ventilator later this afternoon. MIMI SANCHEZ MD CM:HISPHYS:PATIENT HISTORY AND PHYSICAL EXAMINATION [id number] MIMI SANDHU MD 07/19/19 1423 interface
[2019-07-19 08:34] VITALS: BP 116/73
[2019-07-19 10:15] VITALS: BP 96/52; BP 97/58
--- NOTE | 2019-07-19 10:15 | NUR ---
A 63, admitted to [facility], under the services of Dr. DANIEL SANDHU MD,MIMI with a diagnosis of RESPIRATORY FAILURE. Chief complaint is POST BRONCHOSCOPY, RESPIRATORY FAILURE. Patient arrived via bed from OP/ADMIT. Monitor applied. Initial assessment completed. Vital signs taken and recorded. DR. DANIEL SANDHU MD,MIMI notified of admission to the unit. Orders received. See assessment for past medical history, medications and allergies. Patient and/or family oriented to unit. [facility] visitation policy reviewed. Clothing/patient valuable form completed. SUSAN TRAN
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
[2019-07-19 10:53] LABS: ABG BASE EXCESS -4.3 mmol/L (-2.0-2.0); ABG HCO3 24.3 mmol/l (22-26); ABG O2 SATURATION 97.9 % (95-97); ARTERIAL BLOOD GAS PCO2 62.5 mmHg (35-45); ARTERIAL BLOOD GAS PH 7.211 (7.35-7.45)
--- NOTE | 2019-07-19 11:00 | NUR ---
VERSED GIVEN. PATIENT RESTLESS AND AGITATED AND TRYING TO REACH FOR ET TUBE.
--- NOTE | 2019-07-19 11:15 | NUR ---
STOCKTON INSERTED AT THIS TIME. 200 CC OF STRAW CLEAR URINE OBTAINED. CATHETER SECURED.
[2019-07-19 12:00] VITALS: BP 104/64
--- NOTE | 2019-07-19 12:00 | NUR ---
PATIENT CHANGED TO CPAP 5, PSV 10. ABG IN 1 HOUR.
[2019-07-19 13:02] LABS: BASO % 0.4 % (0.0-1.0); EOS % 0.5 % (1.0-4.0); HEMOGLOBIN 12.3 g/dl (12.0-16.0); LYMPH # 1.2 10*3/uL (1.3-4.4); LYMPH % 13.6 % (27.0-41.0); MEAN CELL VOLUME 88.9 fl (81.0-99.0); MEAN CORPUSCULAR HGB 27.3 pg (27.0-31.0); MEAN CORPUSCULAR HGB CONC 30.8 g/dl (33.0-37.0); MEAN PLATELET VOLUME 8.9 fl (9.6-12.3); MONO # 0.7 10*3/uL (0.1-1.0); MONO % 8.3 % (3.0-9.0); NEUT # 6.5 10*3/uL (2.3-7.9); PLATELET COUNT AUTOMATED 241 10*3/uL (130-400); RED CELL DISTRI WIDTH 15.9 % (0-14.5); WHITE BLOOD COUNT 8.5 10*3/uL (4.8-10.8)
[2019-07-19 13:15] LABS: ABG BASE EXCESS -1.1 mmol/L (-2.0-2.0); ABG HCO3 25.4 mmol/l (22-26); ABG O2 SATURATION 96.8 % (95-97); ARTERIAL BLOOD GAS PH 7.302 (7.35-7.45); ARTERIAL BLOOD GAS PO2 62.4 mmHg (80-90)
[2019-07-19 13:18] LABS: ALBUMIN 2.8 gm/dl (3.1-4.5); ALKALINE PHOSPHATASE 65 U/L (45-117); BUN 10 mg/dl (7-24); CHLORIDE 112 mmol/L (98-107); CREATININE 0.63 mg/dL (0.55-1.02); POTASSIUM 4.3 mmol/L (3.5-5.1); SGOT/AST 12 IU/L (3-35); SGPT/ALT 11 U/L (12-78); SODIUM 141 mmol/L (136-145); TOTAL PROTEIN 6.7 gm/dL (6.4-8.2)
--- NOTE | 2019-07-19 13:30 | NUR ---
PATIENT EXTUBATED, PLACED ON 3 L/M NASAL CANNULA. PULSE OX 97%.
--- NOTE | 2019-07-19 13:41 | NUR ---
SPOKE WITH DR. SANCHEZ. PATIENT TO BE EXTUBATED. HOME MEDS TO BE RESUMED. BREATHING TX ORDERED.
--- NOTE | 2019-07-19 15:47 | NUR ---
STOCKTON CATHETER REMOVED. PATIENT BED LINENS CHANGED AT THIS TIME.
[2019-07-19 16:00] VITALS: BP 121/75
[2019-07-19 20:00] VITALS: BP 105/64
--- NOTE | 2019-07-19 22:00 | NUR ---
PATIENT UP TO RESTROOM WITH NO PROBLEMS. DENIES ANY SHORTNESS OF BREATH.
[2019-07-20] VITALS: BP 110/75
--- NOTE | 2019-07-20 | NUR ---
PATIENT RESTING WITH NO SIGNS OF DISTRESS. VITAL SIGNS STABLE.
[2019-07-20 04:00] VITALS: BP 110/75
--- NOTE | 2019-07-20 04:10 | NUR ---
24 HR chart check completed.
[2019-07-20 07:41] VITALS: BP 108/67
--- NOTE | 2019-07-20 12:00 | NUR ---
DR SANCHEZ IN TO SEE PT AND DISCHARGE ORDER RECEIVED.
--- NOTE | 2019-07-20 12:28 | NUR ---
Discharge instructions reviewed with patient/family. Patient receptive and verbalizes understanding. Follow-up care arranged. Written instructions given to patient/family. JG HICKS
--- NOTE | 2019-07-20 12:30 | NUR ---
PT DISCHARGED AT THIS TIME WITH FRIEND TO HOME.
[2019-07-20 16:09] LABS: ACID FAST SPEC PROCESSING Concentration (.)
[2019-07-29 11:06] LABS: ORGANISM ID, MOLD Preliminary report (.)
== END 2019-07-20 12:30 | disposition home or self-care (01) | DRG 136 ==
LOC: SDC 08:04 → ICCU 09:59
PROVIDERS: ADMIT Internal Medicine Critical Care Medicine
PROC: 0BB28ZX Excision of Carina, Via Natural or Artificial Opening Endoscopic, Diagnostic (ICD-10-PCS; principal; 2019-07-19)
PROC: 3E0F8GC Introduction of Other Therapeutic Substance into Respiratory Tract, Via Natural or Artificial Opening Endoscopic (ICD-10-PCS; 2019-07-19)
DX: C34.01 Malignant neoplasm of right main bronchus (principal); F41.1 Generalized anxiety disorder; J44.9 Chronic obstructive pulmonary disease, unspecified; K21.9 Gastro-esophageal reflux disease without esophagitis; E11.9 Type 2 diabetes mellitus without complications; G40.909 Epilepsy, unspecified, not intractable, without status epilepticus; G25.81 Restless legs syndrome; J30.9 Allergic rhinitis, unspecified; I10 Essential (primary) hypertension; J96.12 Chronic respiratory failure with hypercapnia; F34.1 Dysthymic disorder; J95.2 Acute pulmonary insufficiency following nonthoracic surgery; Y92.234 Operating room of hospital as the place of occurrence of the external cause; Y84.8 Other medical procedures as the cause of abnormal reaction of the patient, or of later complication, without mention of misadventure at the time of the procedure; Z72.0 Tobacco use; Z90.49 Acquired absence of other specified parts of digestive tract; Z90.711 Acquired absence of uterus with remaining cervical stump; Z80.42 Family history of malignant neoplasm of prostate; Z92.3 Personal history of irradiation; Z92.21 Personal history of antineoplastic chemotherapy; Z80.1 Family history of malignant neoplasm of trachea, bronchus and lung; Z88.0 Allergy status to penicillin; Z88.5 Allergy status to narcotic agent

== ENCOUNTER 2019-07-25 18:42 | Emergency (ER) | payer OTHER ==
[~2019-07-25] VITALS: Ht 165.1 cm; Wt 49.9 kg
[2019-07-25 18:44] VITALS: BP 113/78
== END 2019-07-26 00:01 | disposition home or self-care (01) ==
LOC: ED 18:42
DX: S42.254A Nondisplaced fracture of greater tuberosity of right humerus, initial encounter for closed fracture (principal); S20.211A Contusion of right front wall of thorax, initial encounter; M25.571 Pain in right ankle and joints of right foot; G43.909 Migraine, unspecified, not intractable, without status migrainosus; J44.9 Chronic obstructive pulmonary disease, unspecified; I10 Essential (primary) hypertension; K21.9 Gastro-esophageal reflux disease without esophagitis; G62.9 Polyneuropathy, unspecified; F17.210 Nicotine dependence, cigarettes, uncomplicated; Z91.030 Bee allergy status; Z88.0 Allergy status to penicillin; Z88.5 Allergy status to narcotic agent; Z79.899 Other long term (current) drug therapy; Z79.82 Long term (current) use of aspirin; Z86.73 Personal history of transient ischemic attack (TIA), and cerebral infarction without residual deficits; W11.XXXA Fall on and from ladder, initial encounter; Y93.89 Activity, other specified; Y92.89 Other specified places as the place of occurrence of the external cause; Y99.8 Other external cause status

== ENCOUNTER 2020-06-08 11:13 | Observation (INO) | payer OTHER ==
[~2020-06-08] VITALS: Ht 160 cm; Wt 51.8 kg
[~2020-06-08 11:13] MED LIST changes: +Synthroid,Levo25 MCG PO; +VITAMIN B-1100 M1 PO
[2020-06-08 11:24] VITALS: BP 120/80
[2020-06-08 11:54] LABS: BASO # 0.1 10*3/uL (0.0-0.1); BASO % 0.8 % (0.0-1.0); EOS # 0.3 10*3/uL (0.0-0.4); EOS % 5.1 % (1.0-4.0); HEMATOCRIT 46.1 % (37.0-47.0); LYMPH # 1.7 10*3/uL (1.3-4.4); MEAN CELL VOLUME 97.3 fl (81.0-99.0); MEAN CORPUSCULAR HGB CONC 31.9 g/dl (33.0-37.0); MEAN PLATELET VOLUME 8.6 fl (9.6-12.3); MONO # 0.4 10*3/uL (0.1-1.0); MONO % 6.1 % (3.0-9.0); NEUT # 4.2 10*3/uL (2.3-7.9); NEUT % 62.7 % (47.0-73.0); PLATELET COUNT AUTOMATED 238 10*3/uL (130-400); RED BLOOD COUNT 4.74 10*6/uL (4.10-5.10); RED CELL DISTRI WIDTH 12.9 % (0-14.5); WHITE BLOOD COUNT 6.6 10*3/uL (4.8-10.8)
[2020-06-08 12:08] LABS: ACT PARTIAL THROMBO TIME 32.8 SECONDS (20.0-32.1)
[2020-06-08 12:12] LABS: ALKALINE PHOSPHATASE 85 U/L (45-117); BUN 14 mg/dl (7-24); CHLORIDE 102 mmol/L (98-107); CREATININE 1.04 mg/dL (0.55-1.02); LIPASE 52 U/L (73-393); POTASSIUM 3.9 mmol/L (3.5-5.1); SGOT/AST 8 IU/L (3-35); SGPT/ALT 11 U/L (12-78); SODIUM 135 mmol/L (136-145); TOTAL PROTEIN 9.1 gm/dL (6.4-8.2)
[2020-06-08 12:15] LABS: TROPONIN I < 0.015 ng/ml (<0.045)
[2020-06-08 13:05] LABS: BILIRUBIN Negative (Negative); BLOOD 1+ (Negative); CLARITY Clear (Clear); COLOR Yellow (Yellow); GLUCOSE Negative (Negative); KETONE Negative (Negative); LEUKO ESTERASE Negative (Negative); NITRITE Negative (Negative); PH 7.5 (4.5-8.0)
[2020-06-08 13:24] LABS: BACTERIA 1+; RBC 16-20 rbc/hpf (0-2)
[2020-06-08 14:20] VITALS: BP 108/67
[2020-06-08 15:01] VITALS: BP 117/91
[2020-06-08 16:00] VITALS: BP 98/68
[2020-06-08] MEDS ORDERED: ONDANSETRON HYDR8 MG PO (16:46)
[2020-06-08] MEDS ORDERED: ROPINIROLE HYD0.5 MG PO (16:55)
[2020-06-08] MEDS ORDERED: LEVOTHYROXINE50 MCG PO (16:58)
[2020-06-08 20:00] VITALS: BP 96/56
[2020-06-08 22:30] VITALS: BP 106/60
[2020-06-09 00:22] VITALS: BP 90/52
[2020-06-09 06:26] LABS: BASO % 0.2 % (0.0-1.0); EOS % 0.2 % (1.0-4.0); HEMATOCRIT 38.9 % (37.0-47.0); LYMPH # 0.7 10*3/uL (1.3-4.4); LYMPH % 13.3 % (27.0-41.0); MEAN CORPUSCULAR HGB CONC 31.4 g/dl (33.0-37.0); MEAN PLATELET VOLUME 8.8 fl (9.6-12.3); MONO # 0.2 10*3/uL (0.1-1.0); MONO % 4.1 % (3.0-9.0); NEUT # 4.2 10*3/uL (2.3-7.9); PLATELET COUNT AUTOMATED 197 10*3/uL (130-400); RED BLOOD COUNT 3.93 10*6/uL (4.10-5.10); RED CELL DISTRI WIDTH 13.1 % (0-14.5); WHITE BLOOD COUNT 5.1 10*3/uL (4.8-10.8)
[2020-06-09 06:53] LABS: ALBUMIN 2.9 gm/dl (3.1-4.5); ALKALINE PHOSPHATASE 62 U/L (45-117); BUN 18 mg/dl (7-24); CHLORIDE 109 mmol/L (98-107); CREATININE 0.97 mg/dL (0.55-1.02); POTASSIUM 4.6 mmol/L (3.5-5.1); SGOT/AST 5 IU/L (3-35); SGPT/ALT 12 U/L (12-78); SODIUM 137 mmol/L (136-145)
[2020-06-09 12:00] VITALS: BP 117/74
[2020-06-09 16:00] VITALS: BP 112/69
[2020-06-09] MEDS ORDERED: METHADONE HYDRO10 MG PO (16:34)
[2020-06-09 20:00] VITALS: BP 108/68
[2020-06-10] VITALS: BP 100/68
[2020-06-10 06:51] LABS: BUN 18 mg/dl (7-24); CHLORIDE 109 mmol/L (98-107); POTASSIUM 4.5 mmol/L (3.5-5.1); SODIUM 138 mmol/L (136-145)
[2020-06-10 06:54] LABS: CREATININE 1.05 mg/dL (0.55-1.02)
[2020-06-10 08:00] VITALS: BP 108/72
[2020-06-10 12:00] VITALS: BP 178/77
[2020-06-10] MEDS ORDERED: DOXYCYCLINE100 M3 PO (13:15)
[2020-06-10] MEDS ORDERED: PREDNISONE10 MG PO (13:15)
[2020-06-10] MEDS ORDERED: LEVOTHYROXINE75 MCG PO (13:23)
[2020-06-10 16:00] VITALS: BP 104/66
[2020-06-10] MEDS ORDERED: VENT7GM INH (17:53)
== END 2020-06-10 19:01 | disposition home or self-care (01) ==
LOC: ED 11:13 → 5E 13:17 → EDHOLD 13:17 → 5E 13:57
PROVIDERS: Emergency Medicine; Student in an Organized Health Care Education/Training Program; ADMIT Internal Medicine; ATTEND Internal Medicine
DX: R42 Dizziness and giddiness (principal); R94.31 Abnormal electrocardiogram [ECG] [EKG]; J44.1 Chronic obstructive pulmonary disease with (acute) exacerbation; E78.00 Pure hypercholesterolemia, unspecified; I10 Essential (primary) hypertension; J45.909 Unspecified asthma, uncomplicated; F41.9 Anxiety disorder, unspecified; J44.9 Chronic obstructive pulmonary disease, unspecified; F17.210 Nicotine dependence, cigarettes, uncomplicated

== ENCOUNTER → 2020-10-23 | Outpatient (CLI) | payer OTHER ==
[~2020-10-23] MED LIST changes: +DOXYCYCLINE100 M3 PO; +LEVOTHYROXINE50 MCG PO; +LEVOTHYROXINE75 MCG PO; +METHADONE HYDRO10 MG PO; +ONDANSETRON HYDR8 MG PO; +VENT7GM INH
== END | disposition home or self-care (01) ==
LOC: COVID19 14:01
PROVIDERS: ATTEND Physician Assistant
DX: Z20.822 Contact with and (suspected) exposure to COVID-19 (principal); C34.91 Malignant neoplasm of unspecified part of right bronchus or lung; D70.1 Agranulocytosis secondary to cancer chemotherapy; J44.9 Chronic obstructive pulmonary disease, unspecified

== ENCOUNTER 2021-01-26 02:57 | Emergency (ER) | payer OTHER ==
[~2021-01-26] VITALS: Ht 165.1 cm; Wt 43.1 kg
[2021-01-26 03:24] VITALS: BP 0/0
== END 2021-01-26 04:35 ==
LOC: ED 02:57
DX: I46.9 Cardiac arrest, cause unspecified (principal); J44.9 Chronic obstructive pulmonary disease, unspecified; F41.9 Anxiety disorder, unspecified; J45.909 Unspecified asthma, uncomplicated; K21.9 Gastro-esophageal reflux disease without esophagitis; I10 Essential (primary) hypertension; E78.00 Pure hypercholesterolemia, unspecified; Z91.030 Bee allergy status; Z88.0 Allergy status to penicillin; Z88.5 Allergy status to narcotic agent; Z79.899 Other long term (current) drug therapy; Z90.49 Acquired absence of other specified parts of digestive tract; Z98.890 Other specified postprocedural states